=== PATIENT | female | born 1960 | race Caucasian/White ===

== ENCOUNTER 2019-01-25 05:48 | Inpatient (IN) ==
[~2019-01-25 05:48] MED LIST: Clindamycin 900mg (Premix) 900 MG/50 ML BAG IV ONE; LIDOCAINE W/ SODIUM BICARB 0.5 ML SYR ONE; Lactated Ringers 1,000 ML PRIMARY IV ONE; Sodium Chloride 0.9% 0 ML ONE; Vancomycin Inj 1gm vial ONE
[2019-01-25] MEDS ORDERED: LIDOCAINE W/ SODIUM BICARB 0.5 ML SYR SUBD ONE (06:00)
[2019-01-25] MEDS ORDERED: Vancomycin-PHA to Dose IV PRN (06:00)
[2019-01-25] MEDS ORDERED: Nasal Sanitizer POPSWAB ampule 3 AMP (Nozin) PREOP DOSE ENOS SCH (06:00)
[2019-01-25] MEDS ORDERED: Clindamycin 900mg (Premix) 900 MG/50 ML BAG IV ONE (06:00)
[2019-01-25] MEDS ORDERED: Lactated Ringers 1,000 ML PRIMARY IV ONE (06:00)
[2019-01-25 06:28] LABS: BILIRUBIN,URINE NEGATIVE (NEG); CLARITY,URINE Slightly Cloudy (CLEAR); COLOR,URINE YELLOW (Y); GLUCOSE, URINE (UA) NEGATIVE (NEG); OCCULT BLOOD,URINE NEGATIVE (NEG); PH,URINE 5.5 (5.0-8.5); PROTEIN,URINE NEGATIVE (NEG); UROBILINOGEN,URINE 0.2 EU/dL (0.2)
[2019-01-25 06:32] LABS: RBC,URINE 0-1 /hpf; SQUAMOUS EPITHELIAL CELL,UR MODERATE; URINE SAMPLE TYPE VOIDED SPECIMEN
[2019-01-25] MEDS ORDERED: BUPivacaine Inj 0.25% PF - 10ml vial ONE (06:50)
[2019-01-25] MEDS ORDERED: BACITRACIN 50,000 UNIT VIAL IRRIG ONE ×4 (06:51→14:24)
[2019-01-25] MEDS ORDERED: Sodium Chloride 0.9% vial 20 ML ONE ×4 (06:51→14:56)
[2019-01-25] MEDS ORDERED: Vancomycin Inj 1gm vial ONE (06:54)
[2019-01-25] MEDS ORDERED: Gentamicin Inj 40 MG/ML VIAL ONE (06:54)
[2019-01-25] MEDS ORDERED: Sodium Chloride 0.9% 1,000 ML PRIMARY IV ONE (07:00)
[2019-01-25] MEDS ORDERED: IPRATROPIUM/ALBUTEROL SULFATE 3 ML NEB NEB ONE ×2 (07:05→07:18)
[2019-01-25] MEDS ORDERED: LIDOCAINE W/ SODIUM BICARB 0.5 ML SYR ONE (07:10)
[2019-01-25] MEDS ORDERED: PROPOFOL 10 MG/1 ML (200 MG/20 ML) VIAL IV ONE (07:25)
[2019-01-25] MEDS ORDERED: HYDROmorphone 2 MG/1 ML ONE ×4 (07:28→17:50)
[2019-01-25] MEDS ORDERED: Sodium Chloride 0.9% vial 10 ML ONE ×2 (07:29→12:44)
[2019-01-25] MEDS ORDERED: ROCURONIUM 10 MG/1 ML - 5 ML VIAL IVP ONE (07:32)
[2019-01-25] MEDS ORDERED: SUCCINYLCHOLINE CHLORIDE 20 MG/1 ML - 10 ML ONE (07:33)
[2019-01-25 08:15] LABS: RBC,URINE 0-1 /hpf
[2019-01-25] MEDS ORDERED: BUPIVACAINE 0.25% W/ EPI - 10 ML VIAL ONE ×2 (08:18→09:29)
[2019-01-25] MEDS ORDERED: Hetastarch 6% + NS 1,000 ML IV ONE (08:34)
[2019-01-25] MEDS ORDERED: TRANEXAMIC ACID 1,000 MG / 10 ML VIAL ONE (10:48)
[2019-01-25] MEDS ORDERED: SODIUM BICARBONATE 8.4% - 50 ML VIAL ONE (10:50)
[2019-01-25] MEDS ORDERED: BUPivacaine Liposome/PF (Exparel) Inj 20ml vial INFIL ONE (15:03)
[2019-01-25] MEDS ORDERED: fentaNYL Inj 100 MCG/2 ML VIAL IVP PRN (17:18)
[2019-01-25] MEDS ORDERED: Prochlorperazine Edisylate Inj 10mg/2ml vial IVP PRN ×2 (17:18→19:05)
[2019-01-25] MEDS ORDERED: LIDOCAINE W/ SODIUM BICARB 0.5 ML SYR SUBD PRN (17:18)
[2019-01-25] MEDS ORDERED: ONDANSETRON 4 MG/2 ML VIAL IVP PRN ×2 (17:18→19:05)
--- NOTE | 2019-01-25 17:18 | CRNA.PROGR ---
Anesthesia Recovery Phase I - Post Anesthesia Evaluation Patient's Condition on Arrival in Phase I: Stable Patient's Condition on Arrival in Phase II: Stable Pain Level: 2
--- NOTE | 2019-01-25 17:18 | CRNA.PROGR ---
Anesthesia Time - Procedure/Recovery Time Start Date: 01/25/19 End Date: 01/25/19 Anesthesia : Time In: 07:30 Anesthesia : Time Out: 17:18 Anesthesia : Total Time: 588 - Total Anesthesia Time Total Anesthesia Time (minutes): 588 - Other Weight: 136.622 kg Height: 5 ft 5 in Body Mass Index (BMI): 50.1 Physical Status: P3 Anesthesia Type: General Anesthesia : ET (stable at patient handoff PACU bp 145/68, resp 17, sat 98, pulse 71, 3400ml crystalloid, 1000ml colloid, 400ml urine, 1000 ml blood loss)
[2019-01-25] MEDS: HYDROmorphone 2 MG/1 ML IVP PRN ×5 (17:19→18:02)
--- NOTE | 2019-01-25 17:25 | CRNA.PROGR ---
Anesthesia Note - Progress Notes Anesthesia Progress Note: multiple attempt was made for interoperative A-line at right and left radial artery sites. was able to canulate the L radial artery with U/S guidance confirming catheter position. upon moving the patient, the tip of catheter migrated sub Q. This due to the fact patient has redundant tissue and 22g catheter, needle a-line availble was too short for this type of patient, no alternatives available. Technique was abandoned. No vascular compromise apparent with attempts made as see with doppler flow U/S. patient recovered well in PACU. h/h and bmp pending at time of note. Pt stable in recovery with [facility]. Will follow up at surgeon/pt request PRN. Update given to hospitalist available, same discussed with surgeon.
--- NOTE | 2019-01-25 17:25 | GEN.OPNOTE ---
Operative Note Surgery Date: 01/25/19 Preoperative Diagnosis: 1. Chronic low back pain. 2. Chronic bilateral lower extremity symptoms right worse and more frequent than the left. 3. Multilevel lumbar degenerative disc disease early advanced at L4-5 and advanced at L5-S1. 4. Multilevel lumbar spondylosis advanced at L4-5 and L5-S1, worse at the L4-5 level. 5. Posterior listhesis of L5 on S1. Postoperative Diagnosis: 1. Chronic low back pain. 2. Chronic bilateral lower extremity symptoms right worse and more frequent than the left. 3. Multilevel lumbar degenerative disc disease early advanced at L4-5 and advanced at L5-S1. 4. Multilevel lumbar spondylosis advanced at L4-5 and L5-S1, worse at the L4-5 level. 5. Posterior listhesis of L5 on S1. 6. Bilateral L4-5 lateral recess stenosis (ligamentous hypertrophy) and L5-S1 lateral recess stenosis (bony hypertrophy). 7. Bilateral L4 and L5 neuroforaminal stenosis. Procedure: 1.) Partial L4 laminectomy with medial facetectomies and foraminotomies for decompression of central canal, bilateral lateral recess, and bilateral neuroforaminal stenosis at the L4-5 level. (CPT code: 43149). 2.) Complete L5 laminectomy with medial facetectomies and foraminotomies for decompression of bilateral lateral recess and neuroforaminal stenosis. (CPT code 72439). 3.) Arthrodesis, combined posterolateral and posterior interbody technique, L4-5. (CPT code: 11777). 4.) Arthrodesis, combined posterolateral and posterior interbody technique, L5-S1. (CPT code: 50987). 5.) Insertion 9 mm x 11 mm x 28 mm Tritanium [address] titanium lumbar interbody cage filled in the center with autograft into the L4-5 interspace for fusion of the L4-5 interspace. (CPT code: 30493). 6.) Insertion 9 mm x 11 mm x 28 [address] titanium lumbar interbody cage filled in the center with autograft into the L5- S1 interspace for fusion of the L5-S1 interspace. (CPT code: 00150). 7.) Segmental posterolateral instrumentation L4-S1 using the Swift Identity Ashley 3 pedicle screw and liz system. (CPT code: 73467). 8.) Use of autograft, harvested through the same incision, cleaned of soft tissue and morselized, for interbody and posterolateral fusion. (CPT code: 50145). 9.) Use of 20cc Swift Identity Vitoss Bimodal synthetic bone fusion product/promotor (implantable allograft), 4 cc of Arlet Biologics Active Matrix (implantable allograft), and 20 cc Tisha BIO DBM Putty Plus cancelleous (implantable allograft) for interbody and posterolateral fusion. (CPT code: 87318). 10.) Use of the Swift Identity computer assisted neuronavigation system for cannulization of the L4, L5, and S1 pedicles bilaterally for the subsequent placement of the L4, L5, and S1 pedicle screws bilaterally. (CPT code: 40000). 11.) Use of intra-operative fluoroscopy for localization of the correct surgical level and for final confirmation of the pos ition of the L4-5 intervertebral cage and final confirmation of the position of the L4-5 posterolateral hardware elements. 12.) Use of intra-operative neuromonitoring including free running EMG's, triggered EMG's, and SSEP's. Surgeon: Dre Perez MD Superintendent Menagerie: LEANN Feldman Estimated Blood Loss (mL): 1,100 Fluids: See anesthesia record Pathology: None Indications: Ms. Vaughan is a 62-year-old female with chronic neck and back pain. Her back pain has been present for decades. She has had back pain ever since a lumbar discectomy performed by Dr. Tee in 1998. She has pain in her legs, primarily the right leg, but occasionally she has pain in the left leg as well. She has had physical therapy and has 4-5 lumbar injections in the past year, which have not provided any durable relief of her symptoms. We discussed the option of proceeding with a L4-5 and L5-S1 transforaminal interbody and L4-S1 posterolateral instrumented fusion for possible durable reduction of her chronic back and intermittent bilateral leg symptoms. She wished to proceed with the surgical procedure and presents for the surgery today. Findings: 1.) Prominent left L4-5 subligamentous disc protrusion. 2.) Desiccated, partially calcified, L5-S1 disc. 3.) Lumbar central canal stenosis, L4-5. 4.) Bilateral lateral recess stenosis L4-5 (ligamentous hypertrophy) and L5-S1 (bony hypertrophy). 5.) Bilateral L4-5 and L5-S1 neuroforaminal stenosis. Complications: None Operative Summary: Ms. Vaughan was met in the pre-operative area. Her surgical history and physical in her chart was reviewed. I reviewed with her the procedure to be performed and we were in agreement on the procedure and this matched what was written on the patient's consent form. I answered any questions that she had before she was taken back to the operating room suite. Ms. Vaughan was brought back to the operating room suite. She was put under general anesthesia and intubated by the anesthesia staff. She had a Alfaro catheter placed in her bladder for the procedure. She had pneumatic compression hose placed on her lower legs bilaterally. Mr. Vaughan was carefully rolled over onto the Russell surgical table. Her arms were gently positioned upwards with her shoulders abducted less than 90. Her arms were well-padded with foam padding on top of the padding the surgical armboards. The region of her chest and axilla was checked bilaterally to make sure that there were no pressure points over the region of the brachial plexus bilaterally. Her breasts were checked be below the chest pad of the Russell table with no pressure pointsover the nipples. All bony prominences were well padded. Her Alfaro catheter was checked be free from kinks. Her pneumatic compression hose was attached and pneumatic compression device. The C-arm fluoroscopy unit was used to help haylei the skin incision for the approach to the intended surgical levels. The intended incision with several crosshatches were marked on the skin with a skin marker. Her scar from her previous surgery was caudal to the marked intended skin incision and not incorporated into the intended skin incision. She was prepped and draped in the usual and standard fashion. She was given 900 mg of Cleocin IV and vancomycin (dosed per pharmacy) IV for perioperative antibiosis. She was given 10 mg of Decadron IV. A standard surgical timeout was performed identifying the correct patient, the correct procedure, and the correct equipment being available for the procedure. The intended skin incision was injected subcutaneously with quarter percent Marcaine with 1 in 200,000 epinephrine. 20 mL of local anesthetic was used. The skin was incised with a 10 blade scalpel and all dermal and superficial bleeding points were controlled with bipolar cautery. Dissection was continued down through the copious subcutaneous tissue to the lumbosacral fascia. The lumbosacral fascia was incised along the borders of the spinous processes and subperiosteal dissection was performed down the spinous processes and out over the lamina with Bovie cautery. A Isabelle was placed over the spinous process at the level of what was believed the L4 pedicles and this was confirmed with lateral fluoroscopy. Continued subperiosteal dissection was performed until the final exposure was of the inferior aspect the L3 lamina, the L4 lamina, the L5, and the upper part of the sacrum bilaterally. The dissection was continued laterally over the L3-4 and L4-5 and L5-S1 facet joints and out laterally over the L4 and L5 transverse processes and the sacral alar bilaterally. During the dissection, large Ethibond suture were encountered in the facial layer in the very caudal aspect of the dissection which were removed. Cerebellar and Gelpi retractors were placed for self-retaining retraction. Soft tissue was cleaned over the posterior aspect of the spine using Bovie cautery as well as a large Leksell rongeur. Extensive decortication of the L4, and L5 transverse processes and the sacral alar bilaterally as well as the lateral aspect of the L3-4 facet joint and the lateral and posterior aspect of the L4-5 and L5-S1 facet joints after removing the hypertrophied posterior aspect of the L4-5 and L5-S1 facet joints with a large Leksell rongeur bilaterally was performed. The upper part of the sacrum was decorticated as well. All decortication was performed with the high-speed Powerphotonic electric drill with a matchstick bit. The bone dust created was collected and saved to be used as autograft for the fusion portion of the procedure. The Tisha neuro navigation reference arc was securely attached to the L3 spinous process and a spin was performed with the [facility] 3-D fluoroscopy unit. The Tisha neuro navigation pedicle probe was then used to cannulate the L4, L5, and S1 pedicles bilaterally. A Jamshidi needle was then inserted into the left L4 pedicle and 20 cc of vertebral body bone marrow was collected and used to saturate the Kellogg Vitoss synthetic bone product intended for the posterior lateral fusion. The internal aspects of the L4, L5, and S1 pedicles were palpated bilaterally with a small ball-tip instrument. The pedicles were then tapped with the appropriate size Tisha Phil 3 pedicle tap. The internal aspect of the pedicles were palpated with a small ball-tip instrument again. The pedicle screws were then placed. 6.5 x 60 mm pedicle screws were placed into the L4 pedicles bilaterally. 6.5 x 55 mm pedicle screws were placed into the L5 pedicles bilaterally. 7.5 x 50 mm pedicle screws were placed into the S1 pedicles bilaterally. The pedicle screws obtained good purchase in the pedicle and vertebral body bone at each level bilaterally. The pedicle screws were then interrogated with triggered EMGs all demonstrating sufficiently high impedance (27 mA or above) indicating that all the pedicle screws were not in close proximity to nerve structures. Another spin was performed with the [employer] 3-D fluoroscopy unit demonstrating that the pedicle screws were contained within the confines of the pedicles at each level bilaterally and that the pedicle screws were all bi-cortical or nearly bi- cortical in purchase as intended. The L5 pedicle screw on the left however exited the lateral aspect of the vertebral body shortly after transversing the pedicle. The pedicle screw was removed and a new more medial trajectory was cannulated in the left L5 pedicle using the neuronavigation pedicle finder with the Swift Identity computer assisted neuronavigation system. The pedicle screw was then placed with this more medial trajectory obtaining good purchase in the pedicle and vertebral body. The pedicle screw was interrogated again with triggered EMG's demonstrating sufficiently high impedance and another spin with the 3D fluoroscopy unit demonstrated the pedicle screw to be within the confines of the pedicle and the vertebral body and bicortical in purchase. Attention was turned to the decompression portion of the procedure. The caudal aspect of the L4 spinous process and the L5 spinous process was removed with a large Leksell rongeur. The L4 and L5 lamina was thinned down with the same instrument. A partial laminectomy of L4 and complete laminectomy of L5 with medial facetectomies and foraminotomies was performed bilaterally. Surgical findings included mild to moderate central canal, moderate to moderately severe lateral recess and neuroforaminal stenosis bilaterally at the L4-5 level all greater in degree then expected on pre-operative imaging and L5-S1 lateral recess and neuroforaminal stenosis bilaterally. Excellent decompression of the central canal, lateral recesses, neuroforamen, and of the thecal sac and exiting and transversing nerve roots was assured by visual inspection as well as palpating in the canal and around the nerve structures with a [place] instrument. The medial facetectomy on the left at L4-5 and L5-S1 were extended laterally to provide the proper exposure needed for the intended interbody fusions at these levels. The lateral extension of the medial facetectomies were performed with the high-speed drill with a matchstick bit. A Monument 4 instrument was used to carefully dissect the soft tissue adjacent to the takeoff of the L5 nerve root and of the S1 nerve root identifying respectively the L4-5 and L5-S1 disc sp aces. The Sanjay nerve root retractor was used to gently retract the thecal sac and the takeoff the L5 nerve root, exposing the L4-5 disc space on the left, with a prominent subligamentous disc protrusion being encountered. Epidural veins over the disc space were coagulated with bipolar cautery turned down to a low setting and then cut with microscissors. An annulotomy was performed in the L4-5 disc space with a 15 blade scalpel and disc material being removed with a pituitary rongeur. Additional disc and cartilaginous endplate was loosened in the disc space using a 7 mm followed by an 8 mm K2 disc space shaver. Between the disc space gianluca additional disc material was removed from the interspace using a pituitary rongeur. The large Minh down-biting curet was used to loosen disc laterally in the L4-5 disc space bilaterally with the fragments being removed with a pituitary rongeur. The large Minh down-biting curet was then used to decorticate the inferior L4 endplate and the superior L5 endplate in the L4-5 interspace. The interspace was then irrigated with bacitracin irrigation. Approximately 2.5 cc of Kellogg BIO DBM Putty Plus cancelleous (implantable allograft) was then placed in the L4-5 interspace and moved anteriorly with a bone tamp. The interspace was then sized for the appropriate size lumbar interbody cage. A 9 mm x 11 mm x 28 [address] Tritanium [address] titanium lumbar interbody cage was selected and filled in the center with autograft and inserted into the L4-5 interspace using the rail track maintainer. The cage was gently countersunk and rotated with a bone tamp and mallet. The cage obtained good purchase between the L4 and L5 endplates. The final position of the intervertebral cage was confirmed with lateral fluoroscopy. The D'Errico nerve root retractor was used to gently retract the thecal sac and the takeoff the S1 nerve root. This disc space was completely collapsed posteriorly with overlap of the posterior inferior aspect of the L5 vertebral b dom being shingled over the posterior aspect of the disc space evident on imaging. The D'Errico nerve root retractor was used to gently retract the thecal sac and the transversing S1 nerve root. The posterior inferior endplate of the L5 vertebral body overhanging the L5-S1 disc space on the left was drilled away until the disc space was encountered. Disc and cartilaginous endplate was loosened in the disc space using a 7 mm K2 disc space shaver followed by a 8 mm disc space shaver. Between the disc space gianluca additional disc material was removed from the interspace using a pituitary rongeur. The large Minh down-biting curet was used to loosen disc laterally in the L5-S1 disc space bilaterally with the fragments being removed with a pituitary rongeur. The disc material in this disc space was very desiccated and partially calcified. The large Minh down-biting curet was then used to decorticate the inferior L5 endplate and the superior S1 endplate in the L5-S1 interspace. The interspace was then irrigated with bacitracin irrigation. Approximately 2.5 cc of Kellogg BIO DBM Putty Plus cancelleous (implantable allograft) was then placed in the L5-S1 interspace and moved anteriorly with a bone tamp. The interspace was then sized for the appropriate size lumbar interbody cage. A 9 mm x 11 mm x 28 mm Tritanium PL titanium lumbar interbody cage was selected and filled in the center with autograft and inserted into the L5-S1 interspace using the rail track maintainer. The cage was gently countersunk and rotated with a bone tamp and mallet. The cage obtained good purchase between the L5 and S1 endplates. The final position of the intervertebral cage was confirmed with lateral fluoroscopy. Attention was turned back to the instrumentation portion of the procedure. A 6.0 mm x 60 mm pre-bent Tisha Phil 3 titanium liz was selected and placed in the [place] of the L4, L5, and S1 pedicle screws bilaterally. Set screws were placed over the rods in the [place] of each of the pedicle screws which were tightened down hand tight initially and then tightened down to their final tightness using the torque/counter torque device. The surgical site was then pulse lavaged with 3 L of vancomycin/bacitracin/gentamicin solution. The paraspinous musculature was retracted and 10 mL of Kellogg Vitoss Bimodal synthetic bone product (allograft) saturated with 5 mL of vertebral body bone marrow and 5 cc of Milabra Active Matrix (allograft)(4 cc diluted to 16 cc with injectable saline)was then placed lateral to the hardware construct on each side from the L4 transverse process to over the sacral alar and upper part of the sacrum bilaterally. The remaining autograft was then split with half of the morselized autograft being placed lateral to the hardware construct over the Vitoss synthetic bone product from the L4 transverse process to the sacral alar bilaterally. The remaining approximately 15 mL of Tisha BIO DBM Putty Plus cancellous which was then split with half of this product being placed lateral to the hardware construct over the bone chips and Vitoss synthetic bone product from the L4 transverse process to sacral alar and over the upper part of the sacrum bilaterally. The canal lateral recesses were inspected for any bone chips and any identified were removed with forceps. The canal lateral recesses were then irrigated with a small amount bacitracin irrigation which was subsequently removed with suction. FloSeal hemostatic agent was then placed in the lateral recess and over all exposed dural elements. A piece of compressed Gelfoam was then placed across the canal. A medium Hemovac drain was placed in the surgical site. The paraspinous musculature was re-approximated with #1 Vicryl suture. The lumbosacral fascia was closed tightly with #1 Vicryl suture in an interrupted fashion. The surgical site was irrigated again with bacitracin irrigation. A medium Hemovac drain was placed above the fascial layer. The deep subcutaneous tissue and fascia was re-approximated with #1 Vicryl suture in an interrupted fashion. The more superficial subcutaneous tissue was re-approximated with 2-0 Vicryl suture in an interrupted fashion. 20 mL of Exoperel deluded with 20 mL of 1/4 percent Marcaine was then injected all around the incision in the subcutaneous tissue. The remaining 9cc of [employer] Biologics Active Matrix was then injected all around the incision in the subcutaneous tissue. The dermis and most superficial subcutaneous tissue was reapproximated with 2-0 Vicryl suture in an inverted interrupted fashion. The [place] drape was pulled back from the skin edges and the final layer of closure was performed surgical stainless steel ratna. The incision was cleansed with bacitracin soaked sponge and then dried with sterile dry sponge. A Prevena suction dressing was then applied to the incision. The surgical drains were secured with 2-0 Vicryl suture. The drain sites were then dressed. All surgical drapes removed from Ms. Vaughan. She was carefully rolled over onto the PACU stretcher. She was awoken and extubated by the anesthesia staff. She was taken the recovery room in stable condition. All surgical counts reported as correct by the scrub and circulating personnel. A physician's blood donor unit assistant, Mrs. Elma Cortez PA-C, assisted with the procedure including the exposure and closure portions of the procedure. She provided irrigation and suctioning throughout the procedure. She skillfully and carefully retracted the nerve structures during the more critical portions of the procedures such as the discectomy and intervertebral cage placement portions of the procedure.
[2019-01-25 17:51] LABS: EC8 SAMPLE TYPE VENOUS
[2019-01-25 17:52] LABS: EC8 CHEM PANEL - PH 7.41 (7.35-7.45); EC8 CHEM PANEL CHLORIDE 104 meq/L (98-112); EC8 CHEM PANEL POTASSIUM 4.6 meq/L (3.5-4.9); EC8 CHEM PANEL SODIUM 141 meq/L (135-145)
[2019-01-25 17:53] LABS: EC8 CHEM PANEL BASE EXCESS 5 MMOL/L (-2-2); EC8 CHEM PANEL HCO3 29 mmol/L (22-26)
--- NOTE | 2019-01-25 18:46 | NEURO.PROG ---
Subjective Post Op Day: 0 Pain Management: IV Alfaro Catheter: Yes Diet: Constant carbohydrate Ambulating: No Additional Details: Just arrived in monitored unit from PACU. Awake and alert. Surgical back pain as expected. Denies pain, numbness, or tingling in legs. Good knee flexion, dorsiflexion, plantarflexion bilaterally. Continue operative drains. Continue post-operative antibiotics while drains present. Continue post-operative pain control. Advance diet. Start to mobilize in am. Objective : Data - Labs CBC and BMP: 01/25/19 17:40 - Vital Signs Vital Signs and I&O: Vital Signs - Last Taken Temperature 97.2 F 01/25/19 06:39 Pulse Rate 57 L 01/25/19 07:27 Respiratory Rate 18 01/25/19 07:27 Blood Pressure 132/86 01/25/19 06:39 Pulse Ox 87 01/25/19 07:27 Intake and Output (24hr x 4 totals) 01/23/19 01/24/19 01/25/19 01/26/19 05:59 05:59 05:59 05:59 Intake Total 3400 / 3400 Output Total 1400 / 1400 Balance 1999
[2019-01-25] MEDS ORDERED: MAGNESIUM 400 MG/5 ML - 30 ML (MILK OF MAGNESIA) PO PRN (19:05)
[2019-01-25] MEDS ORDERED: DIAZEPAM 10 MG/2 ML (5 MG/1 ML) CARPUJECT IVP PRN (19:05)
[2019-01-25] MEDS ORDERED: IMIQUIMOD TOPICAL SCH (19:05)
[2019-01-25] MEDS ORDERED: Ondansetron ODT Tab 4 MG TAB PO PRN (19:05)
[2019-01-25] MEDS ORDERED: Metoclopramide Inj 10 MG/2 ML VIAL IVP PRN (19:05)
[2019-01-25] MEDS ORDERED: Fleet Enema 133ml RECTAL PRN (19:05)
[2019-01-25] MEDS ORDERED: DIAZEPAM 10 MG TABLET PO PRN (19:05)
[2019-01-25] MEDS ORDERED: BISACODYL 5 MG TABLET PO PRN (19:05)
[2019-01-25] MEDS ORDERED: MORPHINE SULFATE 2 MG/1 ML IVP PRN (19:05)
[2019-01-25] MEDS ORDERED: HYDROcodone-APAP 10 MG-325 MG TABLET PO PRN (19:05)
[2019-01-25] MEDS ORDERED: LACTOBACILLUS ACIDOPHILUS 460 MG PO SCH (19:05)
[2019-01-25] MEDS ORDERED: oxyCODONE/APAP 10/325 Tab 1 EACH TAB PO PRN (19:05)
[2019-01-25] MEDS ORDERED: PROMETHAZINE 25 MG/1 ML VIAL IM PRN (19:05)
[2019-01-25] MEDS ORDERED: MAGNESIUM CITRATE 296 ML SOLUTION PO PRN (19:05)
[2019-01-25] MEDS ORDERED: INSULIN ASPART 5 UNIT SUBCUT SCH (19:05)
[2019-01-25] MEDS ORDERED: Vancomycin-PHA to Dose IV SCH (19:05)
[2019-01-25] MEDS ORDERED: DOCUSATE 100 MG CAPSULE PO PRN (19:05)
[2019-01-25] MEDS ORDERED: HYDROcodone-APAP 7.5 MG-325 MG TABLET PO PRN (19:05)
--- NOTE | 2019-01-25 19:10 | CONSULT ---
Consult Note - Consult Consult Date: 01/25/19 Reason for Consult: Other (Consult by Dr. Sue) Requesting Physician: Dr. Perez Primary Care Provider: ZORA LINN - History of Present Illness History of Present Illness: This is a 58 years old female with medical history significant for history of diabetes, hypercholesterolemia, depression, anxiety, hypothyroidism, chronic migraines, reflux, morbid obesity, sleep apnea on CPAP, multilevel lumbar degenerative disc disease, and leg swelling who came into the hospital to have surgery and she had transforaminal lumbar interbody body and posterolateral instrumented fusion done by Dr. Perez today. the hospitalist service were consulted for management of medical issues. Patient was seen postoperatively, apart from pain in her back she was denying chest pain, shortness of breath, nausea. Past Medical History Medical History: 1. Morbid obesity. 2. History of hypothyroidism. 3. History of diabetes, she is only on sliding scale NovoLog according to her. 4. History of obstructive sleep apnea on CPAP. 5. History of depression. 6. History of hypercholesterolemia. 7. History of hypertension she said this was before her gastric bypass and now she is not on any medication. 8. History of cardiac catheterization in July 2014 there was no evidence of coronary artery disease. 9. History of chronic leg edema on furosemide. 10. Chronic back pain. 11. History of GERD. 12. History of grade 2 diastolic dysfunction. 13. History of ascending aorta dilatation 4.1 on echocardiogram done in 2013. 14. History of chronic migraines Surgical History: 1. History of gastric bypass. 2. History of bilateral knee replacements. 3. History of umbilical hernia repair Family History: Reviewed an Not Pertinent Past Social History: Does not smoke, does not drink, no drugs is in [place] with her . Tobacco Use: Never Smoker In the Past 12 Months, Have Used or Abuse Any of the Following Substance: None Review of Systems - Review of Systems All Systems: Reviewed & No Additional Complaints Except as Stated Medication / Allergies Home Medications: Home Medications Medication Instructions Recorded Confirmed Lactobacillus acidophilus 460 mg 460 mg PO QDAY 08/30/18 01/24/19 (20 billion cell) capsule albuterol sulfate HFA 90 2 puff INH QID 08/30/18 01/24/19 mcg/actuation aerosol inhaler betamethasone dipropionate 0.05 % 1 applic TOPICAL BID 08/30/18 01/24/19 topical ointment bupropion HCl XL 150 mg 24 hr 150 mg PO BID 08/30/18 01/24/19 tablet, extended release cyclobenzaprine 10 mg tablet 10 mg PO TID 08/30/18 01/24/19 docusate sodium 100 mg capsule 100 mg PO BID 08/30/18 01/24/19 escitalopram 10 mg tablet 10 mg PO QDAY 08/30/18 01/24/19 famotidine 40 mg tablet 40 mg PO QDAY 08/30/18 01/24/19 furosemide 40 mg tablet 40 mg PO QDAY 08/30/18 01/24/19 insulin aspart (U-100) 100 unit/mL 5 unit SUBCUT QACDINNER 08/30/18 01/24/19 (3 mL) subcutaneous pen levothyroxine 88 mcg tablet 88 mcg PO QDAY 08/30/18 01/24/19 mupirocin 2 % topical cream 1 applic TOPICAL TID 08/30/18 01/24/19 omega 8-xfo-sap-fish oil 1,000 mg 1 cap PO DAILY cap 08/30/18 01/24/19 (120 mg-180 mg) capsule omeprazole 20 mg capsule,delayed 20 mg PO BID 08/30/18 01/24/19 release potassium chloride ER 10 mEq 10 meq PO QDAY 08/30/18 01/24/19 capsule,extended release pravastatin 40 mg tablet 40 mg PO QDAY 08/30/18 01/24/19 pregabalin 200 mg capsule 200 mg PO TID 08/30/18 01/24/19 tolterodine ER 4 mg 4 mg PO QDAY 08/30/18 01/24/19 capsule,extended release 24 hr zolpidem 10 mg tablet 10 mg PO QHS 08/30/18 01/24/19 divalproex 500 mg tablet,delayed 500 mg PO BID #60 tab 12/29/18 01/24/19 release calcium carbonate 600 mg(1,500 2 tab PO QDAY tab 01/11/19 01/24/19 mg)-vitamin D3 800 unit chewable tablet cholecalciferol (vitamin D3) 50,000 unit PO QWEEK 01/11/19 01/24/19 50,000 unit capsule dicyclomine 20 mg tablet 20 mg PO QID 01/11/19 01/24/19 imiquimod 5 % topical cream packet 1 applic TOPICAL QHS ea 01/11/19 01/24/19 gddelyxu-scldbumj-veav 45 mg-folic 1 cap PO QDAY cap 01/11/19 01/24/19 acid 800 mcg-vit K 120 mcg capsule ranitidine 300 mg tablet 300 mg PO QHS tab 01/11/19 01/24/19 zinc 50 mg tablet 50 mg PO QDAY 01/11/19 01/24/19 Allergies/Adverse Reactions: Allergies Allergy/AdvReac Type Severity Reaction Status Date / Time Penicillins Allergy Severe face Verified 01/25/19 06:36 swelling sulfamethoxazole Allergy Severe Anaphylaxis Verified 01/25/19 06:36 [From Marra] topiramate [From Topamax] Allergy Severe Anaphylaxis Verified 01/25/19 06:36 trimethoprim [From Septra] Allergy Anaphylaxis Verified 01/25/19 06:36 NSAIDS (Non-Steroidal AdvReac Unknown Other : Verified 01/25/19 06:36 Anti-Inflamma See Comment Oral Contrast Allergy Nausea/Vomi Uncoded 01/25/19 06:36 ting/Diarrh ea Exam - Vitals Vital Signs: Vital Signs Temperature 96.9 F Pulse Rate 65 Respiratory Rate 18 Blood Pressure 129/67 Pulse Ox 98 Oxygen Flow Rate 3 LNC Height 5 ft 5 in Weight 301 lb 3.2 oz - General General Appearance: No Acute Distress, Cooperative, Morbidly Obese - Head Head Exam: Normal Inspection - Eye Eye Exam: POSITIVE: Normal Appearance - ENT ENT Exam: POSITIVE: Normal Exam - Neck Neck Exam: Normal Inspection - Respiratory Respiratory Exam: POSITIVE: Clear to Auscultation - Bilaterally - Cardiovascular Cardiovascular Exam: POSITIVE: RRR - GI/Abdominal GI/Abdominal Exam: POSITIVE: Normal Bowel Sounds, Non Tender, Non Distended, Soft, No Organomegaly - Rectal Rectal Exam: POSITIVE: Deferred - External Exam: POSITIVE: Deferred - Extremities Extremities Exam: POSITIVE: Normal Inspection Additional Extremities Exam Details: SCDs were applied - Neurological Neurological Exam: POSITIVE: Alert, Oriented x 3, CN II-XII Intact, No Facial Droop, Speech Intact / Clear, Moves All Extremities Equally - Psychiatric Psychiatric Exam: POSITIVE: Normal Affect Results - Labs CBC and BMP: 01/25/19 17:40 01/25/19 20:05 Assessment and Plan - Patient Problems (1) Chronic neck and back pain Current Visit: No Status: Chronic Comment: She status post spinal fusion, management per Dr. Perez. He wrote for pain medication and antiemetics. Code(s): M54.2 - Cervicalgia; M54.9 - Dorsalgia, unspecified; G89.29 - Other chronic pain (2) High cholesterol Current Visit: No Status: Chronic Comment: Continue previous medications Code(s): E78.00 - Pure hypercholesterolemia, unspecified (3) Diabetes Current Visit: Yes Status: Acute Comment: She is on sliding scale insulin at home will put her on sliding scale. Code(s): E11.9 - Type 2 diabetes mellitus without complications (4) Hypothyroidism Current Visit: Yes Status: Acute Comment: Same med Code(s): E03.9 - Hypothyroidism, unspecified (5) Sleep apnea Current Visit: No Status: Chronic Comment: She can use her own CPAP Code(s): G47.30 - Sleep apnea, unspecified (6) Depression Current Visit: No Status: Chronic Comment: Same medication Code(s): F32.9 - Major depressive disorder, single episode, unspecified (7) GERD (gastroesophageal reflux disease) Current Visit: No Status: Chronic Comment: Continue omeprazole and pepcid Code(s): K21.9 - Gastro-esophageal reflux disease without esophagitis
[2019-01-25] MEDS: oxyCODONE/APAP 7.5/325 Tab 1 TAB TAB PO PRN ×2 (19:25→23:33)
[2019-01-25] MEDS ORDERED: FLUMAZENIL 0.1 MG/1 ML - 5 ML IVP ONE (19:40)
[2019-01-25] MEDS: Clindamycin 900mg (Premix) 900 MG/50 ML BAG IV SCH (20:15)
[2019-01-25 20:48] LABS: BLOOD UREA NITROGEN 17 mg/dL (7-22)
[2019-01-25] MEDS ORDERED: ALBUTEROL SULFATE 8.5 GM HFA INHALER INH SCH (21:00)
[2019-01-25] MEDS ORDERED: BETAMETHASONE DIPROPIONATE TOPICAL SCH (21:00)
[2019-01-25] MEDS ORDERED: Tolterodine LA Cap 4 MG CAP PO SCH (21:00)
[2019-01-25] MEDS: PREGABALIN 100 MG CAPSULE PO SCH (21:29)
[2019-01-25] MEDS: DICYCLOMINE 20 MG TABLET PO SCH (21:29)
[2019-01-25] MEDS: DOCUSATE 100 MG CAPSULE PO SCH (21:29)
[2019-01-25] MEDS: Pravastatin Tab 40 MG TAB PO SCH (21:29)
[2019-01-25] MEDS: OMEPRAZOLE 20 MG CAPSULE PO SCH (21:29)
[2019-01-25] MEDS: ESCITALOPRAM 10 MG TABLET PO SCH (21:30)
[2019-01-25] MEDS: DIVALPROEX SODIUM 250 MG TABLET PO SCH (21:30)
[2019-01-25 23:00] LABS: VENOUS PH 7.32 (7.32-7.42)
[2019-01-26 01:19] LABS: VENOUS PH 7.38 (7.32-7.42)
[2019-01-26] MEDS: Clindamycin 900mg (Premix) 900 MG/50 ML BAG IV SCH (03:49)
[2019-01-26] MEDS: oxyCODONE/APAP 7.5/325 Tab 1 TAB TAB PO PRN ×2 (03:52→09:32)
[2019-01-26 04:13] LABS: VENOUS PH 7.36 (7.32-7.42)
[2019-01-26] MEDS: LEVOTHYROXINE 88 MCG TABLET PO SCH (05:34)
[2019-01-26 05:37] LABS: BASOPHILS # (AUTO) 0.01 10*3/UL; BASOPHILS % (AUTO) 0.2 % (0-1); EOSINOPHILS # (AUTO) 0.07 10*3/UL; EOSINOPHILS % (AUTO) 1.2 % (0-8); Hematocrit [HCT] 29.3 % (37.0-47.0); Hemoglobin [HGB] 9.2 g/dL (12.0-16.0); LYMPHOCYTES # (AUTO) 0.76 10*3/uL; MEAN CORPUSCULAR HEMOGLOBIN 30.3 PG (27-31); MEAN CORPUSCULAR HGB CONC 31.4 g/dL (33-37); MEAN CORPUSCULAR VOLUME 96.4 FL (81-99); MEAN PLATELET VOLUME 10.8 FL (7.4-12.2); MONOCYTES # (AUTO) 0.55 10*3/UL (0.3-0.8); MONOCYTES % (AUTO) 9.1 % (5-15); NEUTROPHILS # (AUTO) 4.65 10*3/UL; NEUTROPHILS % (AUTO) 76.7 % (50-80); RED BLOOD COUNT 3.04 10^6/uL (4.20-5.40)
[2019-01-26 06:05] LABS: PLATELET MORPHOLOGY COMMENT NORMAL MORPHOLOGY (NORM); RBC MORPHOLOGY COMMENT NORMAL MORPHOLOGY (NORM); WBC MORPHOLOGY COMMENT NORMAL MORPHOLOGY (NORM)
[2019-01-26 06:10] LABS: BLOOD UREA NITROGEN 17 mg/dL (7-22); BUN/CREATININE RATIO 28.33 (6-20)
--- NOTE | 2019-01-26 06:26 | NEURO.PROG ---
Subjective Post Op Day: 1 Pain Management: PO Alfaro Catheter: Yes Diet: Regular Ambulating: No Additional Details: Mrs Vaughan was awake and alert on rounds this morning with Dr Perez. Her dorsi/plantar flexion and knee flexion are strong bilaterally. She also had good arm strength bilaterally. She does complain of incision site pain, but denied leg pain, numbness or tingling. She did complain of right eye scratchiness which she had in post op. It was checked at that time by Dr Garza. No obvious sign of redness or injury. Episode of unresponsiveness after valium was noted as well as the discontinuation of the valium. The Prevena dressing is intact and functioning on her back incision. The hemovac drain had 260ml in 12 hours from the deep drain, 0ml drainage from the superficial drain. Plan: Mobilize Start Flexeril Discontinue superficial drain Discuss possible eye drops for comfort with Dr. Dias Objective : Data - Labs CBC and BMP: 01/26/19 03:50 01/26/19 03:50 - Vital Signs Vital Signs and I&O: Vital Signs - Last Taken Temperature 98.7 F 01/26/19 05:00 Pulse Rate 74 01/26/19 05:00 Respiratory Rate 10 L 01/26/19 05:00 Blood Pressure 115/60 01/26/19 05:00 Pulse Ox 95 01/26/19 05:00 Intake and Output (24hr x 4 totals) 01/24/19 01/25/19 01/26/19 01/27/19 05:59 05:59 05:59 05:59 Intake Total 4804 / 4804 Output Total 2014 Balance 2789 / 2789
[2019-01-26] MEDS ORDERED: PANTOPRAZOLE 40 MG TABLET PO SCH (07:00)
[2019-01-26] MEDS ORDERED: CYCLOBENZAPRINE 10 MG TABLET PO SCH (09:00)
[2019-01-26] MEDS: Insulin Lispro Flexpen 300 UNIT/3 ML INSULN.PEN SUBCUT SCH ×3 (09:32→17:16)
[2019-01-26] MEDS: FUROSEMIDE 40 MG TABLET PO SCH (09:33)
[2019-01-26] MEDS: DIVALPROEX SODIUM 250 MG TABLET PO SCH ×2 (09:33→20:38)
[2019-01-26] MEDS: PREGABALIN 100 MG CAPSULE PO SCH ×2 (09:33→20:39)
[2019-01-26] MEDS: DOCUSATE 100 MG CAPSULE PO SCH ×2 (09:33→20:39)
[2019-01-26] MEDS: Calcium/Vit D 600mg/400u Tab 1 TAB TABLET PO SCH (09:33)
[2019-01-26] MEDS: Potassium Chloride Tab 10 MEQ TAB PO SCH (09:33)
[2019-01-26] MEDS: FAMOTIDINE 40 MG TABLET PO SCH (09:34)
[2019-01-26] MEDS: OMEPRAZOLE 20 MG CAPSULE PO SCH ×2 (09:34→20:39)
[2019-01-26] MEDS: DICYCLOMINE 20 MG TABLET PO SCH ×4 (09:34→20:37)
--- NOTE | 2019-01-26 11:57 | PDOC(PROG) ---
Date of Service: 01/26/19 Time of Service: 11:49 Interval History: Mildly sedated from pain medications. Can answer questions appropriately, however. Back pain present. Denies shortness of breath, nausea or vomiting. States she is eating and drinking well. Is still on Vapotherm therapy. CO2 retention is improved. Objective : Data - Labs CBC and BMP: 01/26/19 03:50 01/26/19 03:50 Additional Lab Results: 01/26/19 04:05 VBG pH 7.36 VBG pCO2 49 VBG HCO3 28 H VBG Base Excess 2 Objective : Exam - General General Appearance: No Acute Distress, Cooperative Additional General Exam Details: Vital Signs - Last Taken Temperature 98.5 F 01/26/19 11:15 Pulse Rate 71 01/26/19 11:15 Respiratory Rate 12 01/26/19 11:15 Blood Pressure 133/60 01/26/19 11:15 Pulse Ox 94 01/26/19 11:15 - Eye Eye Exam: No Scleral Icterus - ENT ENT Exam: Mucous Membranes Moist - Neck Neck Exam: JVP is not Raised - Respiratory Respiratory Exam: Clear to Auscultation - Bilaterally, Breathing Non Labored - Cardiovascular Cardiovascular Exam: RRR, No Murmur, No Clicks, No Gallops, No Rubs, No JVD - GI/Abdominal GI/Abdominal Exam: Normal Bowel Sounds, Non Tender, Non Distended, Soft - Extremities Extremities Exam: No Clubbing Present, No Edema Present, No Cyanosis Present - Neurological Neurological Exam: Alert, Oriented x 3, No Facial Droop, Speech Intact / Clear, Moves All Extremities Equally Assessment and Plan - Patient Problems (1) Acute hypercapnic respiratory failure Current Visit: Yes Status: Acute Code(s): J96.02 - Acute respiratory failure with hypercapnia (2) Acute hypoxemic respiratory failure Current Visit: Yes Status: Acute Code(s): J96.01 - Acute respiratory failure with hypoxia (3) Diabetes Current Visit: Yes Status: Acute Code(s): E11.9 - Type 2 diabetes mellitus without complications Qualifiers: Diabetes mellitus type: type 2 Diabetes mellitus intermediate project manager insulin use: with intermediate project manager use Diabetes mellitus complication status: without complication Qualified Code(s): E11.9 - Type 2 diabetes mellitus without complications; Z79.4 - prison (current) use of insulin (4) Sleep apnea Current Visit: Yes Status: Chronic Code(s): G47.30 - Sleep apnea, unspecified Qualifiers: Sleep apnea type: obstructive Qualified Code(s): G47.33 - Obstructive sleep apnea (adult) (pediatric) (5) GERD (gastroesophageal reflux disease) Current Visit: Yes Status: Chronic Code(s): K21.9 - Gastro-esophageal reflux disease without esophagitis (6) Chronic neck and back pain Current Visit: Yes Status: Chronic Code(s): M54.2 - Cervicalgia; M54.9 - Dorsalgia, unspecified; G89.29 - Other chronic pain (7) Depression Current Visit: Yes Status: Chronic Code(s): F32.9 - Major depressive disorder, single episode, unspecified Qualifiers: Depression Type: other depression Qualified Code(s): F32.89 - Other s pecified depressive episodes (8) High cholesterol Current Visit: Yes Status: Chronic Code(s): E78.00 - Pure hypercholesterolemia, unspecified (9) Hypothyroidism Current Visit: Yes Status: Acute Code(s): E03.9 - Hypothyroidism, unspecified Qualifiers: Hypothyroidism type: acquired Qualified Code(s): E03.9 - Hypothyroidism, unspecified - Assessment / Plan Additional Assessment/Plan Details: Patient is still on Vapotherm therapy. reduce doses of pain medications to help prevent oversedation, buildup of CO2, and hypoxemia. Use CPAP therapy. She has her pressure device machine here. Labs in a.m. PT and OT as per neurosurgery. DVT prophylaxis as per neurosurgery. Check hemoglobin A1c to get an idea of how well diabetes is controlled. Stop IV fluids.
--- NOTE | 2019-01-26 13:01 | PTI REPORT ---
Thank you for the referral of Ana María Vaughan. She was seen on 01/26/19 for an inpatient evaluation status post lumbar fusion. SUBJECTIVE: The patient is a 58-year-old female who underwent a lumbar fusion surgery yesterday. Per nursing report, the patient is complaining of some chest pain secondary to them having to do a sternal rub once she had come out of surgery as she was having a difficult time with the medications. Nursing staff reports that she is doing a little better this morning and PT is cleared to work with patient. The patient reports that she lives in [place] with her in a house; however, she states that after her surgery she is going to go stay with her sister who lives near [place] and she will have some stairs to maneuver to get into and out of the home where she will be staying. The patient reports that prior to her surgery she was using a single point cane for ambulation and reports that she was having some weakness of her left lower extremity. The patient reports that she has had a history of two previous total knee replacements. She states that both sides are doing fairly well. The patient denies any recent falls. The patient states that she had lost quite a bit of weight, but in the last year has put 100 pounds of the weight back on, which has been limiting her mobility too. The patient reports that she is very anxious to work with PT and is very nervous about trying to sit edge of bed as with her pain level right now she doesn't feel like she wants to move. PAST MEDICAL HISTORY: Past medical history can be found in the patient's medical record. OBJECTIVE FINDINGS: General observations: The patient was alert and oriented to setting upon PT arrival. The patient did have two drains in place including the PREVENA vac, oxygen, IV, and a catheter. The patient was first instructed on lumbar precautions to include no bending/lifting/twisting and we did discuss wearing her brace whenever she is up and also how to log roll into and out of bed. Bed mobility: The patient required max verbal and tactile cueing and she did log roll to her right side. She did require max assist of two in order to roll to the right side and max assist of two in order to go from sidelying to sitting. Once in a sitting position, the patient reported that she was very short of breath. Her oxygen saturation was in the high 90s. She was also feeling nauseous but she did not have any vomiting. She denied any lightheadedness. The patient sat edge of bed for a little bit and once the patient was feeling better the therapist did place the back brace around her in order to check which size would be the most appropriate. We instructed the patient on how to log roll back into bed. This did require max assist of three; two people to help bring her lower extremities up and another person to help guide her down onto the right side. Once in that position she required assist of three in order to roll onto her back. Once she was laying supine we did instruct her in some bed mobility and the patient was able to reposition herself in bed with max cueing. Transfers: The back brace was secured and a gait belt was placed around the patient. The bed was raised a little bit and with assist of two, the patient transferred from a sitting to standing position. In a standing position the patient demonstrated fair standing balance with hand hold assist x2 on a front wheeled walker and contact guard assist x2 for safety. The patient did well with standing and did not report any increase in pain. Ambulation: Once standing, the patient did perform side stepping for approximately five feet to the right with max cueing and contact guard assist. The patient received tactile cueing to place her hands in correct placement and sat back onto the bed. ASSESSMENT: The patient has fair rehab potential secondary to her age and her current mobility level. Short-Term Goals: To be met by discharge from inpatient: Patient will be able to log roll to get into and out of bed independently. Patient will be able to don and doff her brace independently. Patient will be able to transfer from sit to stand safely and independently. Patient will be able to ambulate at least 150 feet with least restrictive assistive device safely. Patient will be able to ascend and descent at least five stairs with least restrictive assistive device. Long-Term Goals: To be met following discharge from inpatient: Patient may be seen by outpatient physical therapy if deemed necessary by her surgeon. TREATMENT PLAN: Patient will be seen B.I.D during the week and one time per day over the weekend as an inpatient to address the above goals and objectives. INITIAL TREATMENT: Treatment today consisted of the initial evaluation followed by one unit of functional activity. Following treatment the patient was left in bed with call light within reach and bed alarm set. [facility]
[2019-01-26] MEDS ORDERED: SODIUM CL 0.9% FOR INH 3 ML NEB NEB ONE (13:29)
[2019-01-26] MEDS: oxyCODONE-ACETAMINOPHEN 5-325 TAB PO PRN ×3 (13:33→21:59)
[2019-01-26] MEDS: CYCLOBENZAPRINE 10 MG TABLET PO SCH ×2 (15:32→20:37)
--- NOTE | 2019-01-26 15:37 | OTI REPORT ---
Thank you for the referral of Ana María Vaughan. She was seen on 01/26/19 for an occupational therapy inpatient evaluation status post lumbar fusion. SUBJECTIVE: The patient is a 58-year-old female who is being seen status post lumbar fusion. The patient reports she is from [place]. The patient lives with her . She has a couple stairs to get int her home. Prior to admission the patient was having some difficulty with lower extremity dressing. They do have a little bit higher toilet as well as a bathtub with a shower chair in it. The patient reports quite a bit of pain in her back today. PAST MEDICAL HISTORY: Past medical history can be found in the patient's medical record. OBJECTIVE FINDINGS: General observations: The patient got something in her eye and it is very irritated, so she is having difficulty seeing today. The patient's chest is also hurting secondary to having a sternal rub as she was having difficulty breathing yesterday. Range of motion: The patient demonstrates upper extremity active range of motion to 100 degrees of shoulder flexion. Elbow flexion/extension was within normal limits. Wrist flexion/extension was within normal limits. Strength: Upper extremity strength was 2+/5 for flexion/abduction, 3+/5 for elbow flexion/extension, and 3+/5 for wrist flexion/extension. Activities of daily living: The patient requires max assist for all ADLs. She was issued a trimmer machine today and instructed in its use for reaching for objects. The patient reported she did not know her back precautions, so they were reviewed and demonstrated. The patient has a lot of concerns about toileting. We did discuss toilet tongs. At this time the patient still has a catheter in, so we will not practice this. Bed mobility: The patient required max assist x3 to come from supine to sit and max assist x3 to transfer from sit to supine. ASSESSMENT: Problem List: Patient would benefit from further education on adaptive equipment and assistive devices Decreased ability to complete ADLs Decreased ability to complete functional transfers Short-Term Goals: To be met by discharge from inpatient: Patient will be able to dress lower extremities independently with assistive devices while following back precautions. Patient will have full upper extremity active range of motion to improve abilities for basic ADLs. Patient will be able to complete a toilet transfer with stand by assist including donning and doffing clothes. Patient will be able to use toileting aids with modified independence. Long-Term Goals: To be met following discharge from inpatient: Patient will return home, demonstrating modified independence with all ADLs and functional transfers. TREATMENT PLAN: Patient will be seen B.I.D during the week and one time per day over the weekend as an inpatient to address the above goals and objectives. INITIAL TREATMENT: Treatment today consisted of the initial evaluation activities only. [facility]
--- NOTE | 2019-01-26 15:44 | OT.PROG ---
Progress Note Progress Note: S: pt reported pain today but understood she needed to get up. O: pt was seen in her room in supine position. She needed cues with log rolling technique to EOB along with mOd A x2. After completing therapy with PT, she completed log roll back into bed with Max A x3. She was left upright in bed in supine position. A: pt participated well today and needs to be able to completed bed mobility more Ind along with donning brace Ind. P: continue per POC.
[2019-01-26] MEDS: ERYTHROMYCIN BASE 1 GM EYE OINT EACH EYE SCH ×2 (17:21→20:39)
--- NOTE | 2019-01-26 17:22 | PT.PROG ---
Progress Note Progress Note: S. Patient stated that she would like to go for a walk. O. Patient ambulated 100 feet in the lazcano and back to her room where she was left with OT for further therapy. A. Patient tolerated ambulation well, she required min assist with transfer and ambulation. She would continue to benefit from skilled therapy to increase strength, endurance and safety at this time. P. Continue POC.
--- NOTE | 2019-01-26 20:26 | CRNA.PROGR ---
Anesthesia Note - Progress Notes Anesthesia Progress Note: Lying in room 308, PT here to assist her out of bed. Vapotherm still supplementing her respiratory system. Not tachypneic, denies SOB. States pain is bearable but significant. Did sustain a Right Corneal irritation/abrasion that is being addressed by Dr Varela. Amnestic re surgical events. Intake and Output - 8hr Totals Only 01/25/19 01/26/19 01/26/19 01/26/19 21:59 05:59 13:59 21:59 Intake Total 3800 / 4804 1004 / 4804 120 / 520 400 / 520 Output Total 156 / 2014 455 / 2015 800 / 2030 1230 / 2030 Balance 2240 / 2789 549 / 2789 -680 / -1510 -830 / -1510 CBC and BMP 01/26/19 03:50 01/26/19 03:50 Vital Signs - Last Taken Temperature 98.7 F 01/26/19 18:32 Pulse Rate 77 01/26/19 19:00 Respiratory Rate 20 01/26/19 18:32 Blood Pressure 111/61 01/26/19 18:32 Pulse Ox 96 01/26/19 18:32 Corneal irritation, pain, itch could be attributed to anesthesia.
[2019-01-26] MEDS: Pravastatin Tab 40 MG TAB PO SCH (20:38)
[2019-01-26] MEDS: ESCITALOPRAM 10 MG TABLET PO SCH (20:39)
[2019-01-27] MEDS: oxyCODONE-ACETAMINOPHEN 5-325 TAB PO PRN ×2 (02:07→15:56)
[2019-01-27] MEDS: HYDROcodone-APAP 5 MG -325 MG TABLET PO PRN ×6 (04:04→21:32)
[2019-01-27 04:56] LABS: VENOUS PH 7.44 (7.32-7.42)
[2019-01-27 05:18] LABS: BASOPHILS # (AUTO) 0.01 10*3/UL; BASOPHILS % (AUTO) 0.2 % (0-1); EOSINOPHILS # (AUTO) 0.05 10*3/UL; EOSINOPHILS % (AUTO) 0.8 % (0-8); Hematocrit [HCT] 25.7 % (37.0-47.0); Hemoglobin [HGB] 7.9 g/dL (12.0-16.0); LYMPHOCYTES # (AUTO) 0.96 10*3/uL; MEAN CORPUSCULAR HEMOGLOBIN 29.7 PG (27-31); MEAN CORPUSCULAR HGB CONC 30.7 g/dL (33-37); MEAN CORPUSCULAR VOLUME 96.6 FL (81-99); MEAN PLATELET VOLUME 10.3 FL (7.4-12.2); MONOCYTES % (AUTO) 8.1 % (5-15); NEUTROPHILS # (AUTO) 4.63 10*3/UL; NEUTROPHILS % (AUTO) 75.1 % (50-80); RED BLOOD COUNT 2.66 10^6/uL (4.20-5.40)
[2019-01-27 05:23] LABS: PLATELET MORPHOLOGY COMMENT NORMAL MORPHOLOGY (NORM); RBC MORPHOLOGY COMMENT NORMAL MORPHOLOGY (NORM); WBC MORPHOLOGY COMMENT NORMAL MORPHOLOGY (NORM)
[2019-01-27 05:24] LABS: BLOOD UREA NITROGEN 13 mg/dL (7-22)
[2019-01-27 05:31] LABS: HEMOGLOBIN A1C 6.27 % (4.2-6.0)
[2019-01-27] MEDS: LEVOTHYROXINE 88 MCG TABLET PO SCH (06:10)
[2019-01-27] MEDS: Insulin Lispro Flexpen 300 UNIT/3 ML INSULN.PEN SUBCUT SCH ×3 (07:09→18:06)
[2019-01-27] MEDS: DOCUSATE 100 MG CAPSULE PO SCH ×2 (08:16→21:34)
[2019-01-27] MEDS: CYCLOBENZAPRINE 10 MG TABLET PO SCH ×3 (08:16→21:34)
[2019-01-27] MEDS: FUROSEMIDE 40 MG TABLET PO SCH (08:16)
[2019-01-27] MEDS: DIVALPROEX SODIUM 250 MG TABLET PO SCH ×2 (08:17→21:34)
[2019-01-27] MEDS: DICYCLOMINE 20 MG TABLET PO SCH ×4 (08:17→21:33)
[2019-01-27] MEDS: FAMOTIDINE 40 MG TABLET PO SCH (08:17)
[2019-01-27] MEDS: ERYTHROMYCIN BASE 1 GM EYE OINT EACH EYE SCH ×4 (08:17→21:35)
[2019-01-27] MEDS: Calcium/Vit D 600mg/400u Tab 1 TAB TABLET PO SCH (08:17)
[2019-01-27] MEDS: PREGABALIN 100 MG CAPSULE PO SCH ×2 (08:17→21:33)
[2019-01-27] MEDS: OMEPRAZOLE 20 MG CAPSULE PO SCH ×2 (08:17→21:34)
[2019-01-27] MEDS: Potassium Chloride Tab 10 MEQ TAB PO SCH (08:17)
--- NOTE | 2019-01-27 08:19 | NEURO.PROG ---
Subjective Post Op Day: 2 Pain Management: PO Carmen Catheter: Yes Diet: Regular Ambulating: Yes Additional Details: Mrs Vaughan is awake and alert and moving all four extremities. She has good arm strength without numbness or tingling. Dorsi/plantar flexion and knee flexion strong bilaterally. Denies numbness, pain or tingling. She does complain of surgical site pain with activity. Her right eye is still bothering her some, and mild injection persists. Prevena dressing intact and functioning on her back. One hemovac drain in place with drainage less than 200ml. Carmen catheter in place at patients request because of her reluctance to need to get out of bed. She did ambulate 100 ft with PT yesterday and felt like it went well. She will have 4 or 5 steps to get into her sister's house when she discharges so will need to do stairs with PT as well. She feels like she will be ready to go home on Wednesday. Plan Continue to mobilize Discontinue carmen catheter if OK with Dr Dias Maintain hemovac drain today. Objective : Data - Labs CBC and BMP: 01/27/19 04:41 01/27/19 04:41 - Vital Signs Vital Signs and I&O: Vital Signs - Last Taken Temperature 98.3 F 01/27/19 06:53 Pulse Rate 74 01/27/19 06:53 Respiratory Rate 15 01/27/19 06:53 Blood Pressure 137/63 01/27/19 06:53 Pulse Ox 97 01/27/19 06:53 Intake and Output (24hr x 4 totals) 01/25/19 01/26/19 01/27/19 01/28/19 05:59 05:59 05:59 05:59 Intake Total 4804 / 4804 1120 / 1120 300 / 300 Output Total 2014 2760 / 2760 200 / 200 Balance 2789 / 2789 -1640 / -1640 100 / 100
[2019-01-27] MEDS ORDERED: POTASSIUM CHLORIDE 20 MEQ TAB PO ONE (10:11)
--- NOTE | 2019-01-27 12:06 | PT.PROG ---
Progress Note Progress Note: S. patient stated that she is sore this morning, however agreed to go for a walk. O. Patient ambulated 150 feet around the nurses station and back to her room where she performed sit to stands x 5 then was left in her chair with alarm and call light. A. Patient tolerated therapy well this morning, She continues to require min to mod assist with bed mobility and sit to stand transfers, she is unable to don and doff her back brace independently. She is concerned about her sister taking care of her at home and is interested in going to a rehab facility for a short period of time. Patient would continue to benefit from skilled therapy to increase strength, endurance and safety at this time. P. Continue POC.
--- NOTE | 2019-01-27 13:06 | PDOC(PROG) ---
Date of Service: 01/27/19 Time of Service: 13:01 Interval History: Seen, evaluated earlier. Had oversedation yesterday to the point where she needed [id number] and reversal from probably Valium, but I suspect it was a combination of narcotics as well although she did respond to flumazenil. That being said, there is some confusion as to which narcotic the patient is responding best to her as being more sedated from in terms of Percocet and hydrocodone. Patient will work with RN today to figure out which pain medication seems to help the most and we will discontinue the other one. Hemoglobin borderline, but no need for transfusion today. Patient is not symptomatic from chest pain, shortness breath, nausea or vomiting. No dizziness or presyncopal symptoms. Objective : Data - Labs CBC and BMP: 01/27/19 04:41 01/27/19 04:41 Objective : Exam - General General Appearance: No Acute Distress, Cooperative Additional General Exam Details: Vital Signs - Last Taken Temperature 98.6 F 01/27/19 11:30 Pulse Rate 68 01/27/19 11:30 Respiratory Rate 12 01/27/19 11:30 Blood Pressure 132/62 01/27/19 11:30 Pulse Ox 99 01/27/19 11:30 Much more alert today. - Eye Eye Exam: No Scleral Icterus - ENT ENT Exam: Mucous Membranes Moist - Neck Neck Exam: JVP is not Raised - Respiratory Respiratory Exam: Clear to Auscultation - Bilaterally, Breathing Non Labored - Cardiovascular Cardiovascular Exam: RRR, No Murmur, No Clicks, No Gallops, No Rubs, No JVD - GI/Abdominal GI/Abdominal Exam: Normal Bowel Sounds, Non Tender, Non Distended, Soft - Extremities Extremities Exam: No Clubbing Present, No Edema Present, No Cyanosis Present - Neurological Neurological Exam: Alert, Oriented x 3, No Facial Droop, Speech Intact / Clear, Moves All Extremities Equally Assessment and Plan - Patient Problems (1) Acute hypoxemic respiratory failure Current Visit: Yes Status: Acute Code(s): J96.01 - Acute respiratory failure with hypoxia (2) Postoperative anemia Current Visit: Yes Status: Acute Code(s): D64.9 - Anemia, unspecified (3) Diabetes Current Visit: Yes Status: Acute Code(s): E11.9 - Type 2 diabetes mellitus without complications Qualifiers: Diabetes mellitus type: type 2 Diabetes mellitus living skills advisor insulin use: with fpc use Diabetes mellitus complication status: without complication Qualified Code(s): E11.9 - Type 2 diabetes mellitus without complications; Z79.4 - control panel builder (current) use of insulin (4) Sleep apnea Current Visit: Yes Status: Chronic Code(s): G47.30 - Sleep apnea, unspecified Qualifiers: Sleep apnea type: obstructive Qualified Code(s): G47.33 - Obstructive sleep apnea (adult) (pediatric) (5) GERD (gastroesophageal reflux disease) Current Visit: Yes Status: Chronic Code(s): K21.9 - Gastro-esophageal reflux disease without esophagitis (6) Chronic neck and back pain Current Visit: Yes Status: Chronic Code(s): M54.2 - Cervicalgia; M54.9 - Dorsalgia, unspecified; G89.29 - Other chronic pain (7) Depression Current Visit: Yes Status: Chronic Code(s): F32.9 - Major depressive disorder, single episode, unspecified Qualifiers: Depression Type: other depression Qualified Code(s): F32.89 - Other specified depressive episodes (8) High cholesterol Current Visit: Yes Status: Chronic Code(s): E78.00 - Pure hyperch olesterolemia, unspecified (9) Hypothyroidism Current Visit: Yes Status: Acute Code(s): E03.9 - Hypothyroidism, unspecified Qualifiers: Hypothyroidism type: acquired Qualified Code(s): E03.9 - Hypothyroidism, unspecified (10) Acute hypercapnic respiratory failure Current Visit: Yes Status: Resolved Code(s): J96.02 - Acute respiratory failure with hypercapnia - Assessment / Plan Additional Assessment/Plan Details: Seems to have resolving acute hypoxemic respiratory failure. Now down to about 1 L per nasal cannula. Okay to discontinue Alfaro catheter. I encouraged patient to work with RN today to figure out which pain medication seems to help the best to avoid further confusion on pain medications and/or benzodiazepines for this patient. She cannot tolerate this from a respiratory standpoint to be on multiple doses. Hemoglobin borderline today, not symptomatic to justify transfusion. However, check labs again in morning and 7-1/2 or below, may need to consider transfusion. Continue PT and OT. Patient would like to opt for acute rehabilitation, and I rn field case manager where in helping patient with that issue.
--- NOTE | 2019-01-27 14:24 | OT.PROG ---
Progress Note Progress Note: OT Daily Note 01/27/19 S: pt reports she was ready for therapy. pt reports that her pain levels are at 7/10 although she is use to the pain and knows she has to push through it. pt reports she is hoping to go to [facility] for rehab. O: pt reported she would go on a walk although needed to use the restroom. pt was able complete bed mobility mod A, pt was able to ambulate into the restroom with CGA. pt use tongs for wiping and was able to set up the tongs and attempted to wipe although reported after that she stil felt wet so she required mod A to complete wiping. a: pt is doing well, she is tolerating her pain levels and would benefit from a skilled therapy facility P:cont per POC
--- NOTE | 2019-01-27 15:31 | PT.PROG ---
Progress Note Progress Note: S. patient she would go for a walk this afternoon. She reports her pain as a 7/10 O. Patient ambulated 150 feet around the nurses station and back to her room where she performed sit to stands x 3 then was left in her chair with alarm and call light. A. Patient tolerated therapy well this morning, She continues to require min to mod assist with bed mobility and sit to stand transfers, Patient would continue to benefit from skilled therapy to increase strength, endurance and safety at this time. P. Continue POC.
[2019-01-27] MEDS: ESCITALOPRAM 10 MG TABLET PO SCH (21:34)
[2019-01-27] MEDS: Pravastatin Tab 40 MG TAB PO SCH (21:34)
[2019-01-28 04:30] LABS: Hematocrit [HCT] 23.9 % (37.0-47.0); Hemoglobin [HGB] 7.7 g/dL (12.0-16.0); MEAN CORPUSCULAR HEMOGLOBIN 30.4 PG (27-31); MEAN CORPUSCULAR HGB CONC 32.2 g/dL (33-37); MEAN CORPUSCULAR VOLUME 94.5 FL (81-99); RED BLOOD COUNT 2.53 10^6/uL (4.20-5.40)
[2019-01-28 04:44] LABS: BLOOD UREA NITROGEN 14 mg/dL (7-22)
[2019-01-28] MEDS: LEVOTHYROXINE 88 MCG TABLET PO SCH (06:00)
[2019-01-28] MEDS: HYDROcodone-APAP 5 MG -325 MG TABLET PO PRN ×4 (06:01→21:41)
[2019-01-28 06:26] LABS: BASOPHILS # (AUTO) 0.01 10*3/UL; BASOPHILS % (AUTO) 0.2 % (0-1); EOSINOPHILS # (AUTO) 0.14 10*3/UL; EOSINOPHILS % (AUTO) 2.5 % (0-8); Hematocrit [HCT] 24.2 % (37.0-47.0); Hemoglobin [HGB] 7.7 g/dL (12.0-16.0); LYMPHOCYTES # (AUTO) 0.99 10*3/uL; MEAN CORPUSCULAR HEMOGLOBIN 30.3 PG (27-31); MEAN CORPUSCULAR HGB CONC 31.8 g/dL (33-37); MEAN CORPUSCULAR VOLUME 95.3 FL (81-99); MEAN PLATELET VOLUME 9.4 FL (7.4-12.2); MONOCYTES # (AUTO) 0.52 10*3/UL (0.3-0.8); MONOCYTES % (AUTO) 9.1 % (5-15); NEUTROPHILS # (AUTO) 4.02 10*3/UL; NEUTROPHILS % (AUTO) 70.6 % (50-80); RED BLOOD COUNT 2.54 10^6/uL (4.20-5.40)
[2019-01-28 06:27] LABS: PLATELET MORPHOLOGY COMMENT NORMAL MORPHOLOGY (NORM); RBC MORPHOLOGY COMMENT NORMAL MORPHOLOGY (NORM); WBC MORPHOLOGY COMMENT NORMAL MORPHOLOGY (NORM)
--- NOTE | 2019-01-28 06:29 | EKG ---
[address] [address] Measurements Intervals [place] Rate: 132 P: [place]: 0 QRS: 31 QRSD: 92 T: 0 QT: 307 QTc: 385 Interpretive Statements ATRIAL FIBRILLATION WITH RAPID VENTRICULAR RESPONSE NONSPECIFIC ST & T-WAVE ABNORMALITY ABNORMAL RHYTHM ECG No previous ECG available for comparison Electronically Signed On 01-28-19 10:56:19 MDT by Hu Hernandez [email or web address]
[2019-01-28 06:36] LABS: BLOOD UREA NITROGEN 13 mg/dL (7-22); SERUM ALBUMIN 2.8 g/dL (3.5-4.8)
[2019-01-28] MEDS ORDERED: METOPROLOL TARTRATE 5 MG/5 ML VIAL IVP ONE (06:37)
[2019-01-28] MEDS: FUROSEMIDE 40 MG TABLET PO SCH (07:10)
[2019-01-28] MEDS: Insulin Lispro Flexpen 300 UNIT/3 ML INSULN.PEN SUBCUT SCH ×3 (08:27→17:31)
[2019-01-28] MEDS ORDERED: DILTIAZEM 5 MG/ML - 5 ML IV ONE (08:43)
--- NOTE | 2019-01-28 08:43 | OT.PROG ---
Progress Note Progress Note: S: pt stated that she wanted to use the bathroom and agreed to therapy. O: pt completed bed mobility from supine to EOb with MOD A due to pain and soreness. pt then completed functional transfer to bathroom where pt was educated on use of toilet tongs for toileting hygiene. pt completed toileting tasks independently and toileting hygiene was completed with additional education. A: pt tolerated session well. pt is concerned about how low the toilet is at her sisters house and is interested in a toilet frame or handles. pt needed multiple rest breaks. pt reported that she was a little nervous with moving around and getting up. P: continue POC Addendum entered and electronically signed by Александр Fraser 01/28/19 08:43: tx date 01/27/19 at 08:15
[2019-01-28] MEDS ORDERED: Diltiazem Drip 125 MG in Sodium Chloride 0.9% 100 ML IV SCH ×2 (08:45→11:28)
[2019-01-28] MEDS ORDERED: Potassium Chloride Tab 10 MEQ TAB PO SCH (09:00)
[2019-01-28] MEDS: ALBUTEROL INH SCH ×2 (09:05→09:06)
[2019-01-28] MEDS ORDERED: Sodium Chloride 0.9% 1,000 ML PRIMARY IV ONE (09:09)
--- NOTE | 2019-01-28 09:25 | NEURO.PROG ---
Subjective Post Op Day: 3 Pain Management: PO Alfaro Catheter: No Flatus: Yes Diet: Constant carbohydrate Ambulating: Yes Additional Details: Appears comfortable in chair. Back "sore". Denies leg symptoms. Moving all extremities well. Has been ambulating. Atrial fibrillation with RVR. Not symptomatic. Rate not controlled with metoprolol. Cardizem bolus and drip to pending. Drain output decreased, 50 cc; drains to be pulled. Okay to start on anticoagulation if needed for Afib. If rate not controlled may be transferred to [place] for Cardiology evalution. If rate controlled, patient would like to look into [facility] in [place] for rehab. Objective : Data - Labs CBC and BMP: 01/28/19 06:25 01/28/19 06:25 - Vital Signs Vital Signs and I&O: Vital Signs - Last Taken Temperature 98.6 F 01/28/19 07:04 Pulse Rate 147 H 01/28/19 07:10 Respiratory Rate 22 01/28/19 07:04 Blood Pressure 115/61 01/28/19 07:10 Pulse Ox 92 01/28/19 07:04 Intake and Output (24hr x 4 totals) 01/26/19 01/27/19 01/28/19 01/29/19 05:59 05:59 05:59 05:59 Intake Total 4804 / 4804 1120 / 1120 2880 / 2880 Output Total 2014 2760 / 2760 1060 / 1060 80 / 80 Balance 2789 / 2789 -1640 / -1640 1820 / 1820 -80 / -80
[2019-01-28] MEDS ORDERED: ACETAMINOPHEN 325 MG TABLET PO ONE ×2 (09:38→11:28)
[2019-01-28] MEDS ORDERED: Sodium Chloride 0.9% 500 ML PRIMARY IV ONE ×3 (09:38→11:28)
[2019-01-28] MEDS: DICYCLOMINE 20 MG TABLET PO SCH ×4 (09:43→21:10)
[2019-01-28] MEDS: DOCUSATE 100 MG CAPSULE PO SCH ×2 (09:43→21:10)
[2019-01-28] MEDS: Calcium/Vit D 600mg/400u Tab 1 TAB TABLET PO SCH (09:43)
[2019-01-28] MEDS: DIVALPROEX SODIUM 250 MG TABLET PO SCH ×2 (09:43→21:11)
[2019-01-28] MEDS: CYCLOBENZAPRINE 10 MG TABLET PO SCH ×3 (09:43→21:09)
[2019-01-28] MEDS: OMEPRAZOLE 20 MG CAPSULE PO SCH (09:44)
[2019-01-28] MEDS: ERYTHROMYCIN BASE 1 GM EYE OINT EACH EYE SCH ×4 (09:44→21:13)
[2019-01-28] MEDS: FAMOTIDINE 40 MG TABLET PO SCH (09:44)
[2019-01-28] MEDS: PREGABALIN 100 MG CAPSULE PO SCH ×2 (09:44→21:10)
[2019-01-28] MEDS ORDERED: Sodium Chloride 0.9% 250 ML ONE (09:57)
--- NOTE | 2019-01-28 11:00 | OT.PROG ---
Progress Note Progress Note: pt placed on therapy hold by nursing staff due to heart and BP issues. will check again tomorrow and attempt therapy services.
[2019-01-28] MEDS ORDERED: BISACODYL 5 MG TABLET PO PRN (11:28)
[2019-01-28] MEDS ORDERED: ONDANSETRON 4 MG/2 ML VIAL IVP PRN (11:28)
--- NOTE | 2019-01-28 11:36 | PDOC(PROG) ---
Date of Service: 01/28/19 Time of Service: 11:16 Interval History: Patient seen and evaluated earlier. Discussed with neurosurgery. [place] some palpitations. Found to be in atrial fibrillation with rapid ventricular response. Has never had this rhythm before. No nausea or vomiting. No chest pains. Back pain present but she states the burning that she had in her lower extremities prior to surgery is gone. Objective : Data - Labs CBC and BMP: 01/28/19 06:25 01/28/19 06:25 Additional Lab Results: 01/28/19 01/28/19 01/28/19 04:19 06:25 10:15 Calculated Osmolality 290.0 Troponin I < 0.012 < 0.012 01/28/19 06:25 Magnesium 2.0 Total Bilirubin 0.2 L AST 37 ALT 40 Alkaline Phosphatase 102 Total Protein 5.2 L Albumin 2.8 L Globulin 2.4 L Albumin/Globulin Ratio 1.10 L - EKG Data -: EKG Interpreted by Me Rate: Tachycardia - EKG Data EKG Interpretation: Nonspecific ST-T Wave Changes, Other (Atrial fibrillation) Objective : Exam - General General Appearance: No Acute Distress, Cooperative Additional General Exam Details: Vital Signs - Last Taken Temperature 98.6 F 01/28/19 07:04 Pulse Rate 147 H 01/28/19 07:10 Respiratory Rate 22 01/28/19 07:04 Blood Pressure 115/61 01/28/19 07:10 Pulse Ox 92 01/28/19 07:04 - Eye Eye Exam: No Scleral Icterus - ENT ENT Exam: Mucous Membranes Moist - Neck Neck Exam: JVP is not Raised - Respiratory Respiratory Exam: Clear to Auscultation - Bilaterally, Breathing Non Labored - Cardiovascular Cardiovascular Exam: No Murmur, No Clicks, No Gallops, No Rubs, Irregular Rhythm, Tachycardia - GI/Abdominal GI/Abdominal Exam: Normal Bowel Sounds, Non Tender, Non Distended, Soft - Extremities Extremities Exam: No Clubbing Present, No Cyanosis Present, +1 Edema - Neurological Neurological Exam: Alert, Oriented x 3, No Facial Droop, Speech Intact / Clear, Moves All Extremities Equally - Psychiatric Psychiatric Exam: Normal Affect, Normal Mood Assessment and Plan - Patient Problems (1) Atrial fibrillation Current Visit: Yes Status: Acute Code(s): I48.91 - Unspecified atrial fib rillation Qualifiers: Atrial fibrillation type: paroxysmal Qualified Code(s): I48.0 - Paroxysmal atrial fibrillation (2) Postoperative anemia Current Visit: Yes Status: Acute Code(s): D64.9 - Anemia, unspecified (3) Hypokalemia Current Visit: Yes Status: Acute Code(s): E87.6 - Hypokalemia (4) Acute hypoxemic respiratory failure Current Visit: Yes Status: Resolved Code(s): J96.01 - Acute respiratory failure with hypoxia (5) Diabetes Current Visit: Yes Status: Acute Code(s): E11.9 - Type 2 diabetes mellitus without complications Qualifiers: Diabetes mellitus type: type 2 Diabetes mellitus detention insulin use: with detention use Diabetes mellitus complication status: without complication Qualified Code(s): E11.9 - Type 2 diabetes mellitus without complications; Z79.4 - senior care (current) use of insulin (6) Sleep apnea Current Visit: Yes Status: Chronic Code(s): G47.30 - Sleep apnea, unspecified Qualifiers: Sleep apnea type: obstructive Qualified Code(s): G47.33 - Obstructive sleep apnea (adult) (pediatric) (7) GERD (gastroesophageal reflux disease) Current Visit: Yes Status: Chronic Code(s): K21.9 - Gastro-esophageal reflux disease without esophagitis (8) Chronic neck and back pain Current Visit: Yes Status: Chronic Code(s): M54.2 - Cervicalgia; M54.9 - Dorsalgia, unspecified; G89.29 - Other chronic pain (9) Depression Current Visit: Yes Status: Chronic Code(s): F32.9 - Major depressive disorder, single episode, unspecified Qualifiers: Depression Type: other depression Qualified Code(s): F32.89 - Other specified depressive episodes (10) High cholesterol Current Visit: Yes Status: Chronic Code(s): E78.00 - Pure hypercho lesterolemia, unspecified (11) Hypothyroidism Current Visit: Yes Status: Acute Code(s): E03.9 - Hypothyroidism, unspecified Qualifiers: Hypothyroidism type: acquired Qualified Code(s): E03.9 - Hypothyroidism, unspecified (12) Acute hypercapnic respiratory failure Current Visit: Yes Status: Resolved Code(s): J96.02 - Acute respiratory failure with hypercapnia - Assessment / Plan Additional Assessment/Plan Details: Tried metoprolol, and this did not really help in terms of heart rate control. Troponins thus far do not show evidence of myocardial infarction. We'll trend up troponins, replace electrolytes and check BMP and troponins later today. If we cannot get control of heart rate, will need to transfer to facility with clinical psychology professor. Otherwise we can do outpatient workup with echocardiogram and cardiology evaluation if we can get control of the heart rate. We discussed anticoagulation. Chads-vasc2 score is 2. I think she would benefit from anticoagulation for the time being with evaluation should this be postoperative atrial fibrillation lasting less than 48 hours one could consider stopping anticoagulation if that were the case. However, if she has prolonged atrial fibrillation beyond that, she may benefit from longer term anticoagulation. The patient and I spoke in depth regarding Coumadin versus Xarelto versus Eliquis, including all risks and benefits, risks being bleeding complications and possible pitfalls of not being able to reverse bleeding with antidotes, and benefits of prevention of stroke, lack of drug interactions, and ease of therapy in terms of lab monitoring. The patient chose Eliquis . I will check a TSH and free T4 If we can get rate controlled, we'll try to arrange cardiology follow-up in [place] when patient is in rehabilitation, but again if we cannot control rate then we will get patient to inpatient facility for cardiac evaluation. The patient's hemoglobin has dropped to 7.7. Given atrial fibrillation, hypokalemia, I think it would benefit patient to do blood transfusion and replace potassium. We spoke about the potential risks of blood transfusion and the patient was okay with proceeding with this plan. Given need for drip, transfer to ICU.
[2019-01-28] MEDS: Apixaban 5 MG TABLET PO SCH ×2 (13:35→21:11)
[2019-01-28] MEDS ORDERED: ESCITALOPRAM 10 MG TABLET PO SCH (21:00)
[2019-01-28] MEDS ORDERED: Pravastatin Tab 40 MG TAB PO SCH (21:00)
[2019-01-28 23:13] LABS: BASOPHILS # (AUTO) 0.01 10*3/UL; BASOPHILS % (AUTO) 0.2 % (0-1); EOSINOPHILS # (AUTO) 0.28 10*3/UL; EOSINOPHILS % (AUTO) 4.4 % (0-8); Hematocrit [HCT] 30.8 % (37.0-47.0); Hemoglobin [HGB] 9.8 g/dL (12.0-16.0); MEAN CORPUSCULAR HEMOGLOBIN 30.2 PG (27-31); MEAN CORPUSCULAR HGB CONC 31.8 g/dL (33-37); MEAN CORPUSCULAR VOLUME 94.8 FL (81-99); MONOCYTES # (AUTO) 0.64 10*3/UL (0.3-0.8); MONOCYTES % (AUTO) 10.1 % (5-15); NEUTROPHILS # (AUTO) 4.15 10*3/UL; NEUTROPHILS % (AUTO) 65.8 % (50-80); PLATELET MORPHOLOGY COMMENT NORMAL MORPHOLOGY (NORM); RBC MORPHOLOGY COMMENT NORMAL MORPHOLOGY (NORM); RED BLOOD COUNT 3.25 10^6/uL (4.20-5.40); WBC MORPHOLOGY COMMENT NORMAL MORPHOLOGY (NORM)
[2019-01-29] MEDS: HYDROcodone-APAP 5 MG -325 MG TABLET PO PRN ×5 (02:57→20:59)
[2019-01-29 04:39] LABS: Hematocrit [HCT] 28.1 % (37.0-47.0); Hemoglobin [HGB] 8.8 g/dL (12.0-16.0); MEAN CORPUSCULAR HEMOGLOBIN 29.4 PG (27-31); MEAN CORPUSCULAR HGB CONC 31.3 g/dL (33-37); MEAN PLATELET VOLUME 10.2 FL (7.4-12.2); RED BLOOD COUNT 2.99 10^6/uL (4.20-5.40)
[2019-01-29 04:46] LABS: BLOOD UREA NITROGEN 14 mg/dL (7-22); BUN/CREATININE RATIO 23.33 (6-20)
[2019-01-29] MEDS ORDERED: LEVOTHYROXINE 88 MCG TABLET PO SCH (05:30)
[2019-01-29] MEDS: Insulin Lispro Flexpen 300 UNIT/3 ML INSULN.PEN SUBCUT SCH ×3 (07:42→16:15)
--- NOTE | 2019-01-29 07:43 | NEURO.PROG ---
Subjective Post Op Day: 4 Pain Management: PO Alfaro Catheter: No Diet: Constant carbohydrate Ambulating: Yes Additional Details: Awake and alert. Sitting comfortably in chair. Feels better today. Cardioverted; now in sinus rythym. A lot of gas, but no bowel movement yet. Will likely come out of monitored unit today. Would like to go to [facility] in [place] for rehab. Objective : Data - Labs CBC and BMP: 01/29/19 04:05 01/29/19 04:05 - Vital Signs Vital Signs and I&O: Vital Signs - Last Taken Temperature 98.3 F 01/29/19 07:00 Pulse Rate 60 01/29/19 07:00 Respiratory Rate 14 01/29/19 07:00 Blood Pressure 134/66 01/29/19 07:00 Pulse Ox 96 01/29/19 07:00 Intake and Output (24hr x 4 totals) 01/27/19 01/28/19 01/29/19 01/30/19 05:59 05:59 05:59 05:59 Intake Total 1120 / 1120 2880 / 2880 3201 / 3201 Output Total 2760 / 2760 1060 / 1060 680 / 680 Balance -1640 / -1640 1820 / 1820 2521 / 2521
[2019-01-29] MEDS: DICYCLOMINE 20 MG TABLET PO SCH ×4 (08:44→21:01)
[2019-01-29] MEDS: CYCLOBENZAPRINE 10 MG TABLET PO SCH ×3 (08:44→20:58)
[2019-01-29] MEDS: ERYTHROMYCIN BASE 1 GM EYE OINT EACH EYE SCH ×4 (08:44→21:01)
[2019-01-29] MEDS: DIVALPROEX SODIUM 250 MG TABLET PO SCH ×2 (08:44→21:00)
[2019-01-29] MEDS: DOCUSATE 100 MG CAPSULE PO SCH ×2 (08:44→20:58)
[2019-01-29] MEDS: PREGABALIN 100 MG CAPSULE PO SCH ×2 (08:45→21:01)
[2019-01-29] MEDS: Apixaban 5 MG TABLET PO SCH ×2 (08:45→21:00)
[2019-01-29] MEDS ORDERED: FAMOTIDINE 40 MG TABLET PO SCH (09:00)
[2019-01-29] MEDS ORDERED: Potassium Chloride Tab 10 MEQ TAB PO SCH (09:00)
[2019-01-29] MEDS ORDERED: Calcium/Vit D 600mg/400u Tab 1 TAB TABLET PO SCH (09:00)
[2019-01-29] MEDS ORDERED: POTASSIUM CHLORIDE 20 MEQ TAB PO ONE (10:24)
[2019-01-29] MEDS ORDERED: DILTIAZEM HCL CD 120 MG CAP PO ONE (10:25)
--- NOTE | 2019-01-29 11:09 | PDOC(PROG) ---
Date of Service: 01/29/19 Time of Service: 11:04 Interval History: doing well this morning. no chest pain. was in sinus rhythm all night, spontaneously converted no SOB no nausea or vomiting passing gas Objective : Data - Labs CBC and BMP: 01/29/19 04:05 01/29/19 04:05 Objective : Exam - General General Appearance: No Acute Distress, Cooperative Additional General Exam Details: Vital Signs - Last Taken Temperature 97.3 F 01/29/19 09:00 Pulse Rate 59 L 01/29/19 10:00 Respiratory Rate 15 01/29/19 10:00 Blood Pressure 119/62 01/29/19 10:00 Pulse Ox 92 01/29/19 10:00 - Eye Eye Exam: No Scleral Icterus - ENT ENT Exam: Mucous Membranes Moist - Neck Neck Exam: JVP is not Raised - Respiratory Respiratory Exam: Clear to Auscultation - Bilaterally, Breathing Non Labored - Cardiovascular Cardiovascular Exam: RRR, No Murmur, No Clicks, No Gallops, No Rubs, No JVD - GI/Abdominal GI/Abdominal Exam: Non Tender, Non Distended, Soft - Extremities Extremities Exam: No Clubbing Present, No Cyanosis Present, +1 Edema - Neurological Neurological Exam: Alert, Oriented x 3, No Facial Droop, Speech Intact / Clear, Moves All Extremities Equally - Psychiatric Psychiatric Exam: Normal Affect, Normal Mood Assessment and Plan - Patient Problems (1) Atrial fibrillation Current Visit: Yes Status: Acute Code(s): I48.91 - Unspecified atrial fibrillation Qualifiers: Atrial fibrillation type: paroxysmal Qualified Code(s): I48.0 - Paroxysmal atrial fibrillation (2) Postoperative anemia Current Visit: Yes Status: Acute Code(s): D64.9 - Anemia, unspecified (3) Hypokalemia Current Visit: Yes Status: Acute Code(s): E87.6 - Hypokalemia (4) Acute hypoxemic respiratory failure Current Visit: Yes Status: Resolved Code(s): J96.01 - Acute respiratory failure with hypoxia (5) Diabetes Current Visit: Yes Status: Acute Code(s): E11.9 - Type 2 diabetes mellitus without complications Qualifiers: Diabetes mellitus type: type 2 Diabetes mellitus snf insulin use: with snf use Diabetes mellitus complication status: without complication Qualified Code(s): E11.9 - Type 2 diabetes mellitus without complications; Z79.4 - halfway (current) use of insulin (6) Sleep apnea Current Visit: Yes Status: Chronic Code(s): G47.30 - Sleep apnea, unspecified Qualifiers: Sleep apnea type: obstructive Qualified Code(s): G47.33 - Obstructive sleep apnea (adult) (pediatric) (7) GERD (gastroesophageal reflux disease) Current Visit: Yes Status: Chronic Code(s): K21.9 - Gastro-esophageal reflux disease without esophagitis (8) Chronic neck and back pain Current Visit: Yes Status: Chronic Code(s): M54.2 - Cervicalgia; M54.9 - Dorsalgia, unspecified; G89.29 - Other chronic pain (9) Depression Current Visit: Yes Status: Chronic Code(s): F32.9 - Major depressive disorder, single episode, unspecified Qualifiers: Depression Type: other depression Qualified Code(s): F32.89 - Other specified depressive episodes (10) High cholesterol Current Visit: Yes Status: Chronic Code(s): E78.00 - Pure hypercholesterolemia, unspecified (11) Hypothyroidism Current Visit: Yes Status: Acute Code(s): E03.9 - Hypothyroidism, unspecified Qualifiers: Hypothyroidism type: acquired Qualified Code(s): E03.9 - Hypothyroidism, unspecified (12) Acute hypercapnic respiratory failure Current Visit: Yes Status: Resolved Code(s): J96.02 - Acute respiratory failure with hypercapnia - Assessment / Plan Additional Assessment/Plan Details: anemia is improved, but now down another point on Hb, check CBC in AM convert to PO cardizem, continue eliquis. given this was less than 48 hours, likely patient will not need snf anticoagulation for CVA prevention I think the afib was likely a result of anemia and hypokalemia arrange cardiology evaluation in [place] as outpatient I am anticipating a month of cardizem CD and eliquis, cardiology evaluation to determine if this is just paroxysmal afib or intermittent afib that would require more ad terminal makeup operator approaches to management replace potassium stop Cardizem drip labs in AM transfer out of ICU to floor status. PT and OT
[2019-01-29] MEDS ORDERED: BISACODYL 5 MG TABLET PO PRN (11:19)
[2019-01-29] MEDS ORDERED: ONDANSETRON 4 MG/2 ML VIAL IVP PRN (11:19)
[2019-01-29] MEDS: ESCITALOPRAM 10 MG TABLET PO SCH (20:58)
[2019-01-29] MEDS: Pravastatin Tab 40 MG TAB PO SCH (21:00)
[2019-01-30] MEDS: HYDROcodone-APAP 5 MG -325 MG TABLET PO PRN ×6 (01:04→23:02)
[2019-01-30 04:39] LABS: Hematocrit [HCT] 28.1 % (37.0-47.0); Hemoglobin [HGB] 8.8 g/dL (12.0-16.0); MEAN CORPUSCULAR HEMOGLOBIN 29.5 PG (27-31); MEAN CORPUSCULAR HGB CONC 31.3 g/dL (33-37); MEAN CORPUSCULAR VOLUME 94.3 FL (81-99); MEAN PLATELET VOLUME 9.7 FL (7.4-12.2); RED BLOOD COUNT 2.98 10^6/uL (4.20-5.40)
[2019-01-30 04:53] LABS: BLOOD UREA NITROGEN 17 mg/dL (7-22)
[2019-01-30] MEDS: LEVOTHYROXINE 88 MCG TABLET PO SCH (05:26)
[2019-01-30] MEDS: Insulin Lispro Flexpen 300 UNIT/3 ML INSULN.PEN SUBCUT SCH ×3 (07:34→16:39)
[2019-01-30] MEDS ORDERED: DILTIAZEM HCL CD 120 MG CAP PO SCH (09:00)
[2019-01-30] MEDS: Calcium/Vit D 600mg/400u Tab 1 TAB TABLET PO SCH (09:38)
[2019-01-30] MEDS: PREGABALIN 100 MG CAPSULE PO SCH ×2 (09:39→21:00)
[2019-01-30] MEDS: FAMOTIDINE 40 MG TABLET PO SCH (09:39)
[2019-01-30] MEDS: DOCUSATE 100 MG CAPSULE PO SCH ×2 (09:39→20:59)
[2019-01-30] MEDS: Potassium Chloride Tab 10 MEQ TAB PO SCH (09:39)
[2019-01-30] MEDS: DICYCLOMINE 20 MG TABLET PO SCH ×4 (09:40→21:01)
[2019-01-30] MEDS: DILTIAZEM HCL CD 120 MG CAP PO SCH (09:40)
[2019-01-30] MEDS: DIVALPROEX SODIUM 250 MG TABLET PO SCH ×2 (09:40→20:59)
[2019-01-30] MEDS: CYCLOBENZAPRINE 10 MG TABLET PO SCH ×3 (09:40→21:00)
[2019-01-30] MEDS: Apixaban 5 MG TABLET PO SCH ×2 (09:41→21:00)
[2019-01-30] MEDS: ERYTHROMYCIN BASE 1 GM EYE OINT EACH EYE SCH ×2 (09:51→13:27)
[2019-01-30] MEDS ORDERED: SODIUM CHLORIDE 0.9% IV SCH (10:30)
[2019-01-30] MEDS ORDERED: CEFAZOLIN IV SCH (10:30)
--- NOTE | 2019-01-30 10:33 | PDOC(PROG) ---
Date of Service: 01/30/19 Time of Service: 10:27 Interval History: Doing fairly well. Back pain is controlled. States that she has chronic, intermittent nausea that's associated with some foods after gastric bypass. She had gastric bypass remotely, loss 274 pounds but gained about 100 back. She states she has had multiple EGD procedures in the past, and continues to follow with weight loss surgeon in [place] as well as a mallet and die cutter there. Is chronically on Zofran for this nausea. There was concern over the wound, on my view of the wound in the middle portion there could be developing wound infection, some blistering. On Benadryl ahead and start Ancef. She has taken Keflex in the past with no problems. Her right eye does feel better. Still itchy and scratchy. Objective : Data - Labs CBC and BMP: 01/30/19 04:04 01/30/19 04:04 Objective : Exam - General General Appearance: No Acute Distress, Cooperative Additional General Exam Details: Vital Signs - Last Taken Temperature 98.5 F 01/30/19 06:58 Pulse Rate 78 01/30/19 07:00 Respiratory Rate 17 01/30/19 06:58 Blood Pressure 129/64 01/30/19 06:58 Pulse Ox 92 01/30/19 06:58 - Eye Eye Exam: No Scleral Icterus - ENT ENT Exam: Mucous Membranes Moist Eye: Other: Right Eye (watery, clear. No evidence of erythema) - Neck Neck Exam: JVP is not Raised - Respiratory Respiratory Exam: Clear to Auscultation - Bilaterally, Breathing Non Labored - Cardiovascular Cardiovascular Exam: RRR, No Murmur, No Clicks, No Gallops, No Rubs, No JVD - GI/Abdominal GI/Abdominal Exam: Normal Bowel Sounds, Non Tender, Non Distended, Soft - Extremities Extremities Exam: No Clubbing Present, No Edema Present, No Cyanosis Present - Back Additional Back Exam Details: Incision has a lot of blistering lateral to the midline. In the middle portion of the incision there appears to be some erythema, I cannot express draining pus. Possibly some surface infection. - Neurological Neurological Exam: Alert, Oriented x 3, No Facial Droop, Speech Intact / Clear, Moves All Extremities Equally Assessment and Plan - Patient Problems (1) Atrial fibrillation Current Visit: Yes Status: Acute Code(s): I48.91 - Unspecified atrial fi brillation Qualifiers: Atrial fibrillation type: paroxysmal Qualified Code(s): I48.0 - Paroxysmal atrial fibrillation (2) Postoperative anemia Current Visit: Yes Status: Acute Code(s): D64.9 - Anemia, unspecified (3) Hypokalemia Current Visit: Yes Status: Acute Code(s): E87.6 - Hypokalemia (4) Acute hypoxemic respiratory failure Current Visit: Yes Status: Resolved Code(s): J96.01 - Acute respiratory failure with hypoxia (5) Diabetes Current Visit: Yes Status: Acute Code(s): E11.9 - Type 2 diabetes mellitus without complications Qualifiers: Diabetes mellitus type: type 2 Diabetes mellitus mcc insulin use: with mcc use Diabetes mellitus complication status: without complication Qualified Code(s): E11.9 - Type 2 diabetes mellitus without complications; Z79.4 - correction (current) use of insulin (6) Sleep apnea Current Visit: Yes Status: Chronic Code(s): G47.30 - Sleep apnea, unspecified Qualifiers: Sleep apnea type: obstructive Qualified Code(s): G47.33 - Obstructive sleep apnea (adult) (pediatric) (7) GERD (gastroesophageal reflux disease) Current Visit: Yes Status: Chronic Code(s): K21.9 - Gastro-esophageal reflux disease without esophagitis (8) Chronic neck and back pain Current Visit: Yes Status: Chronic Code(s): M54.2 - Cervicalgia; M54.9 - Dorsalgia, unspecified; G89.29 - Other chronic pain (9) Depression Current Visit: Yes Status: Chronic Code(s): F32.9 - Major depressive disorder, single episode, unspecified Qualifiers: Depression Type: other depression Qualified Code(s): F32.89 - Other specified depressive episodes (10) High cholesterol Current Visit: Yes Status: Chronic Code(s): E78.00 - Pure hyperch olesterolemia, unspecified (11) Hypothyroidism Current Visit: Yes Status: Acute Code(s): E03.9 - Hypothyroidism, unspecified Qualifiers: Hypothyroidism type: acquired Qualified Code(s): E03.9 - Hypothyroidism, unspecified (12) Acute hypercapnic respiratory failure Current Visit: Yes Status: Resolved Code(s): J96.02 - Acute respiratory failure with hypercapnia (13) Wound infection Current Visit: Yes Status: Acute Comment: This is suspected. I don't know for sure if this is wound infection. Nothing to Gram stain as there is nothing draining. We'll place on Ancef for now. Lots of blistering laterally and those blister sites look okay. Code(s): T14.8XXA - Other injury of unspecified body region, initial encounter; L08.9 - Local infection of the skin and subcutaneous tissue, unspecified - Assessment / Plan Additional Assessment/Plan Details: PT for wound care therapy. Arguing against infection would be a normal white blood cell count, no fever, but I don't want to take any chances with this. Start Ancef. Stop telemetry monitoring. Continue Cardizem and Eliquis, try to arrange cardiology appointment and have spoken with case management about this. Eventually, patient will go back to [facility] for continued rehabilitation in [place]. Think this makes sense with her underlying comorbidities. Continue potassium. Zofran when necessary nausea and vomiting. I recommended to the patient should visit with her weight loss surgeon regarding any need to follow up with EGD. No signs or symptoms to suggest ulcer or other complications from her gastric bypass. I'm going to add a vitamin D level and B12 level and folic acid level given her history of gastric bypass for tomorrow's labs.
[2019-01-30] MEDS: ceFAZolin Inj 2gm (Premix) 2 GM/50 ML BAG IV SCH ×2 (11:21→20:58)
--- NOTE | 2019-01-30 11:45 | PT PM DAY ---
Diagnosis : Lumbar Fusion PM - Physical Therapy S: The patient reports no new changes. O: The patient was seen for transfer training in and out of bed and up and down out of a chair. We helped her with her lumbosacral corset as she is not independent in getting that on secondary to her obesity. The patient ambulated up to 400 feet with stand by assist of one. A: The patient did much better with her overall mobility today. We will be attempting some stair activities tomorrow and working towards getting her independent with her ADLs so that she can be transferred home. P: Continue seeing patient BID during the week and one time per day over the weekend for transfers, ambulation, and range of motion/strengthening exercises. MTDD
--- NOTE | 2019-01-30 13:06 | PT.PROG ---
Progress Note Progress Note: S. Patient stated that she is sore and tired from showering this morning, however agreed to go for a walk. O. Patient ambulated 150 feet around the nurses station and back to her room where she was left in her chair and nursing was notified. A. Patient tolerated ambulation well, she was able to don and doff back brace independently this morning. She would continue to benefit from skilled therapy to increase strength, endurance and mobility at this time. P. Continue POC.
[2019-01-30] MEDS ORDERED: TOBRAMYCIN EACH EYE SCH (14:00)
[2019-01-30] MEDS ORDERED: DEXAMETHASONE EACH EYE SCH (14:00)
--- NOTE | 2019-01-30 15:20 | PT.PROG ---
Progress Note Progress Note: S. Patient stated she would like to go for a walk. O. Patient ambulated 90 feet to the stair well then ascended and descended 5 stairs then ambulated 90 feet back to her room where she performed sit to stands x 5 then was left in her chair with alarm and call light. A. Patient tolerated ambulation and stair training well, Patient would continue to benefit from skilled therapy to increase safety and independence with ADL's. P. Continue POC.
[2019-01-30] MEDS: TOBRAMYCIN RIGHT EYE SCH ×2 (16:38→20:59)
[2019-01-30] MEDS: DEXAMETHASONE RIGHT EYE SCH ×2 (16:38→20:59)
--- NOTE | 2019-01-30 18:15 | NEURO.PROG ---
Subjective Post Op Day: 5 Pain Management: PO Alfaro Catheter: No Flatus: Yes Diet: Consistent carbohydrate Ambulating: Yes Additional Details: Awake and alert. Sitting in chair. Back "sore". Legs good; numbness resolved. Incision area still with some blistering and dusky skin edges. Continue antibiotics. Possible transfer to [facility] this week for rehab. Objective : Data - Labs CBC and BMP: 01/30/19 04:04 01/30/19 04:04 - Vital Signs Vital Signs and I&O: Vital Signs - Last Taken Temperature 97.3 F 01/30/19 16:31 Pulse Rate 68 01/30/19 16:31 Respiratory Rate 17 01/30/19 16:31 Blood Pressure 135/75 01/30/19 16:31 Pulse Ox 92 01/30/19 16:31 Intake and Output (24hr x 4 totals) 01/28/19 01/29/19 01/30/19 01/31/19 05:59 05:59 05:59 05:59 Intake Total 2880 / 2880 3201 / 3201 3347 / 3347 750 / 750 Output Total 1060 / 1060 680 / 680 325 / 325 400 / 400 Balance 1820 / 1820 2521 / 2521 3022 / 3022 350 / 350
[2019-01-30] MEDS: ESCITALOPRAM 10 MG TABLET PO SCH (21:00)
[2019-01-30] MEDS: Pravastatin Tab 40 MG TAB PO SCH (21:00)
[2019-01-31] MEDS: TOBRAMYCIN RIGHT EYE SCH ×4 (03:57→19:20)
[2019-01-31] MEDS: DEXAMETHASONE RIGHT EYE SCH ×4 (03:57→19:20)
[2019-01-31] MEDS: ceFAZolin Inj 2gm (Premix) 2 GM/50 ML BAG IV SCH ×3 (03:58→19:20)
[2019-01-31 04:51] LABS: BASOPHILS # (AUTO) 0.02 10*3/UL; BASOPHILS % (AUTO) 0.5 % (0-1); EOSINOPHILS # (AUTO) 0.19 10*3/UL; EOSINOPHILS % (AUTO) 4.4 % (0-8); LYMPHOCYTES # (AUTO) 1.15 10*3/uL; MEAN CORPUSCULAR HEMOGLOBIN 29.3 PG (27-31); MEAN CORPUSCULAR VOLUME 94.5 FL (81-99); MEAN PLATELET VOLUME 9.5 FL (7.4-12.2); MONOCYTES % (AUTO) 11.5 % (5-15); NEUTROPHILS # (AUTO) 2.44 10*3/UL; NEUTROPHILS % (AUTO) 56.3 % (50-80); RED BLOOD COUNT 3.07 10^6/uL (4.20-5.40)
[2019-01-31 04:55] LABS: BLOOD UREA NITROGEN 16 mg/dL (7-22)
[2019-01-31 04:59] LABS: PLATELET MORPHOLOGY COMMENT NORMAL MORPHOLOGY (NORM); RBC MORPHOLOGY COMMENT NORMAL MORPHOLOGY (NORM); WBC MORPHOLOGY COMMENT NORMAL MORPHOLOGY (NORM)
[2019-01-31] MEDS: LEVOTHYROXINE 88 MCG TABLET PO SCH (05:39)
[2019-01-31] MEDS: HYDROcodone-APAP 5 MG -325 MG TABLET PO PRN ×5 (06:46→23:36)
[2019-01-31] MEDS: Insulin Lispro Flexpen 300 UNIT/3 ML INSULN.PEN SUBCUT SCH ×3 (06:49→17:02)
[2019-01-31] MEDS: CYCLOBENZAPRINE 10 MG TABLET PO SCH ×3 (08:31→21:25)
[2019-01-31] MEDS: Apixaban 5 MG TABLET PO SCH ×2 (08:32→21:25)
[2019-01-31] MEDS: DICYCLOMINE 20 MG TABLET PO SCH ×4 (08:32→21:25)
[2019-01-31] MEDS: Calcium/Vit D 600mg/400u Tab 1 TAB TABLET PO SCH (08:32)
[2019-01-31] MEDS: FAMOTIDINE 40 MG TABLET PO SCH (08:33)
[2019-01-31] MEDS: Potassium Chloride Tab 10 MEQ TAB PO SCH (08:33)
[2019-01-31] MEDS: PREGABALIN 100 MG CAPSULE PO SCH ×2 (08:33→21:24)
[2019-01-31] MEDS: DIVALPROEX SODIUM 250 MG TABLET PO SCH ×2 (08:33→21:24)
[2019-01-31] MEDS: DOCUSATE 100 MG CAPSULE PO SCH ×2 (08:33→21:26)
[2019-01-31] MEDS: DILTIAZEM HCL CD 120 MG CAP PO SCH (08:33)
--- NOTE | 2019-01-31 10:30 | OT.PROG ---
Progress Note Progress Note: S: pt stated that she was feeling okay and needed to use the bathroom. O: tx consisted of donning back brace independently, STS x1, functional ambulation x20' with FWW and CGA for safety, functional transfer to toilet with use of grab bars. pt competed toileting tasks independently and toileting hygiene with MOD A after attempting to clean with toilet tongs. pt transferred back to recliner with SBA for safety. A: pt tolerated session well. pt is unable to clean herself well after a BM due to limited mobility from surgery. P: continue POC
--- NOTE | 2019-01-31 10:36 | PDOC(PROG) ---
Interval History: Patient has no complaints she states that Dr. Perez looked at her back today he was not concerned I looked at and there is no redness outside of the the bandage that its own their it is not painful when I touch around. Her white count is normal and no left shift hemoglobin stable Objective : Data - Labs CBC and BMP: 01/31/19 04:05 01/31/19 04:05 Objective : Exam - General General Appearance: Cooperative - Respiratory Respiratory Exam: Clear to Auscultation - Bilaterally, Breathing Non Labored, Normal To Percussion, Normal to Percussion and Palpation - Cardiovascular Cardiovascular Exam: RRR, No Murmur, No Clicks, No Gallops, No Rubs, PMI Non- Displaced - GI/Abdominal GI/Abdominal Exam: Normal Bowel Sounds, Non Tender, Non Distended, Soft, No Masses, No Hepatomegaly, No Splenomegaly, No Organomegaly - Back Additional Back Exam Details: No redness seen around the bandage or pain on palpation Assessment and Plan - Patient Problems (1) Chronic neck and back pain Current Visit: Yes Status: Chronic Comment: Status post surgery white count within normal limits no left shift hemoglobin is stable scheduled to go to [facility] wound care in the morning Code(s): M54.2 - Cervicalgia; M54.9 - Dorsalgia, unspecified; G89.29 - Other chronic pain (2) Depression Current Visit: Yes Status: Chronic Code(s): F32.9 - Major depressive disorder, single episode, unspecified Qualifiers: Depression Type: other depression Qualified Code(s): F32.89 - Other specified depressive episodes (3) High cholesterol Current Visit: Yes Status: Chronic Code(s): E78.00 - Pure hypercholesterolemia, unspecified (4) GERD (gastroesophageal reflux disease) Current Visit: Yes Status: Chronic Code(s): K21.9 - Gastro-esophageal reflux disease without esophagitis (5) Sleep apnea Current Visit: Yes Status: Chronic Code(s): G47.30 - Sleep apnea, unspecified Qualifiers: Sleep apnea type: obstructive Qualified Code(s): G47.33 - Obstructive sleep apnea (adult) (pediatric) (6) Diabetes Current Visit: Yes Status: Acute Code(s): E11.9 - Type 2 diabetes mellitus without complications Qualifiers: Diabetes mellitus type: type 2 Diabetes mellitus senior care insulin use: with senior care use Diabetes mellitus complication status: without complication Qualified Code(s): E11.9 - Type 2 diabetes mellitus without complications; Z79.4 - MCC (current) use of insulin (7) Hypothyroidism Current Visit: Yes Status: Acute Code(s): E03.9 - Hypothyroidism, unspecified Qualifiers: Hypothyroidism type: acquired Qualified Code(s): E03.9 - Hypothyroidism, unspecified (8) Acute hypoxemic respiratory failure Current Visit: Yes Status: Resolved Code(s): J96.01 - Acute respiratory failure with hypoxia (9) Acute hypercapnic respiratory failure Current Visit: Yes Status: Resolved Code(s): J96.02 - Acute respiratory failure with hypercapnia (10) Postoperative anemia Current Visit: Yes Status: Acute Code(s): D64.9 - Anemia, unspecified (11) Atrial fibrillation Current Visit: Yes Status: Acute Code(s): I48.91 - Unspecified atrial fibrillation Qualifiers: Atrial fibrillation type: paroxysmal Qualified Code(s): I48.0 - Paroxysmal atrial fibrillation (12) Hypokalemia Current Visit: Yes Status: Acute Code(s): E87.6 - Hypokalemia (13) Wound infection Current Visit: Yes Status: Acute Code(s): T14.8XXA - Other injury of unspecified body region, initial encounter; L08.9 - Local infection of the skin and subcutaneous tissue, unspecified
--- NOTE | 2019-01-31 11:00 | PT.PROG ---
Progress Note Progress Note: S. Patient stated that she is tired this morning, however agreed to go for a walk. O. Patient ambulated 150 feet around the nurses station and back to her room where she was left in her chair with alarm and call light. A. Patient tolerated ambulation well, She continues to require mod assist with toilet hygiene and would continue to benefit from skilled therapy to increase independence. P. Continue POC.
--- NOTE | 2019-01-31 11:36 | NEURO.PROG ---
Subjective Post Op Day: 6 Pain Management: PO Alfaro Catheter: No Flatus: Yes Diet: consistent carbohydrate Additional Details: On rounds with Dr Perez this morning Ana María was awake and alert. She sat up on the edge of the bed with minimal assist for Dr Perez to look at her incision. Her incision is intact with minimal serosanguinous drainage. There is a dusky area mid incision and some blisters away from the incision from the Prevena dressing. She has good bilateral dorsi/plantar flexion and hip flexion strength. She says the numbness is still resolved. She has ambulated well with physical therapy. Plan for discharge to [facility] in [place] per Dr Stevens. Objective : Data - Labs CBC and BMP: 01/31/19 04:05 01/31/19 04:05 - Vital Signs Vital Signs and I&O: Vital Signs - Last Taken Temperature 98.3 F 01/31/19 11:08 Pulse Rate 67 01/31/19 11:08 Respiratory Rate 17 01/31/19 11:08 Blood Pressure 136/61 01/31/19 11:08 Pulse Ox 93 01/31/19 11:08 Intake and Output (24hr x 4 totals) 01/29/19 01/30/19 01/31/19 02/01/19 05:59 05:59 05:59 05:59 Intake Total 3201 / 3201 3347 / 3347 1250 / 1250 250 / 250 Output Total 680 / 680 325 / 325 400 / 400 Balance 2521 / 2521 3022 / 3022 850 / 850 250 / 250
--- NOTE | 2019-01-31 12:00 | OT AM DAY ---
Diagnosis : Lumbar Fusion AM - Occupational Therapy S: The patient reports she is having pain in her back. Nursing staff is worried about the wound. The patient wanted to practice a shower today. O: We discussed how to use the sock aide which the patient was able to do with min assist. We then had the patient ambulate to the shower; she did fatigue and needed two rest breaks. While in the shower, OT had the patient participate as much as she could. It did take a lot of increased time to complete showering task. The patient did need assistance with rinsing off. She did practice using her bath sponge during the shower task to wash peroneal area as well as lower extremities. The patient did fatigue easily and needed rest breaks. She had difficulty with washing her hair and reaching behind her armpits and her back area, so she did use the sponge for that. After the shower we had the patient practice dressing tasks with adaptive equipment including trimming department blocker and sock aide for lower extremity dressing. The patient ambulated back to her room and completed ADLs while standing x1 minute. A: The patient does fatigue easily. She does need min assist for some of the showering tasks and requires increased time. P: Continue seeing patient BID during the week and one time per day over the weekend for upper extremity strengthening, ADLs, and overall functional mobility. EDISD
--- NOTE | 2019-01-31 15:41 | PT.PROG ---
Progress Note Progress Note: S. Patient stated that she is feeling pretty good this afternoon, She agreed to go to the therapy gym. O. Patient was wheeled to the therapy gym where she performed seated exercises in the form of; long arc quads, heel toe raises, ball squeezes, clam shells, resisted knee flexion all x 10 bilaterally, sit to stands x 10 then ambulated 150 feet back to her room where she was left in her chair with alarm and call light. A. Patient tolerated therapy well, she continues to require assistance with ADL's. She would continue to benefit from skilled therapy to increase strength, endurance and safety. P. Continue POC.
[2019-01-31] MEDS: ESCITALOPRAM 10 MG TABLET PO SCH (21:25)
[2019-01-31] MEDS: Pravastatin Tab 40 MG TAB PO SCH (21:26)
[2019-02-01] MEDS: DEXAMETHASONE RIGHT EYE SCH ×4 (03:00→19:38)
[2019-02-01] MEDS: ceFAZolin Inj 2gm (Premix) 2 GM/50 ML BAG IV SCH ×3 (03:00→19:38)
[2019-02-01] MEDS: TOBRAMYCIN RIGHT EYE SCH ×4 (03:00→19:38)
[2019-02-01] MEDS: HYDROcodone-APAP 5 MG -325 MG TABLET PO PRN ×5 (04:20→23:24)
[2019-02-01] MEDS: LEVOTHYROXINE 88 MCG TABLET PO SCH (06:10)
[2019-02-01] MEDS: Insulin Lispro Flexpen 300 UNIT/3 ML INSULN.PEN SUBCUT SCH ×3 (08:03→16:41)
[2019-02-01] MEDS: DILTIAZEM HCL CD 120 MG CAP PO SCH (08:40)
[2019-02-01] MEDS: DOCUSATE 100 MG CAPSULE PO SCH ×2 (08:40→20:43)
[2019-02-01] MEDS: PREGABALIN 100 MG CAPSULE PO SCH ×2 (08:40→20:44)
[2019-02-01] MEDS: DICYCLOMINE 20 MG TABLET PO SCH ×4 (08:41→20:44)
[2019-02-01] MEDS: Apixaban 5 MG TABLET PO SCH ×2 (08:41→20:44)
[2019-02-01] MEDS: DIVALPROEX SODIUM 250 MG TABLET PO SCH ×2 (08:42→20:43)
[2019-02-01] MEDS: Calcium/Vit D 600mg/400u Tab 1 TAB TABLET PO SCH (08:43)
[2019-02-01] MEDS: FAMOTIDINE 40 MG TABLET PO SCH (08:43)
[2019-02-01] MEDS: CYCLOBENZAPRINE 10 MG TABLET PO SCH ×3 (08:43→20:43)
[2019-02-01] MEDS: Potassium Chloride Tab 10 MEQ TAB PO SCH (08:45)
--- NOTE | 2019-02-01 11:47 | OT.PROG ---
Progress Note Progress Note: S: pt stated that she was feeling good and agreed to therapy. O: tx consisted of seated UE red RTB exercises of biceps, IROT/EROT x20 each, 1# UE exercises of biceps, wrist flexion and extension, EROT/IROT x20 each, STS x5, functional transfer from w/c to recliner with CGA for safety. A: pt tolerated session well. pt is able to susanne back brace independently and complete most ADLS with SBA. P: continue POC
--- NOTE | 2019-02-01 11:52 | PT.PROG ---
Progress Note Progress Note: S. Patient stated that she would go to the therapy gym this morning. O. Patient ambulated 175 feet to the therapy gym where she had heat to her upper back then performed seated long arc quads, heel toe raises, ball squeezes, clam shells, resisted knee flexion, and sit to stands all x 10. Patient was left with OT for further therapy. A. Patient tolerated therapy well this morning, she continues to make gains with strength and endurance, she would continue to benefit from skilled therapy to increase strength, endurance and safety at this time. P. continue POC.
--- NOTE | 2019-02-01 15:04 | NEURO.PROG ---
Subjective Post Op Day: 7 Pain Management: PO Alfaro Catheter: No Flatus: Yes Diet: consistent carbohydrate Additional Details: Ana María is awake, alert and in good spirits today. OT and PT have gone well with some limitations yet with ADL's and the recommendation from PT that she would still benefit from strength training. She is afebrile and VSS. She has good strength with dorsi and plantar flexion and hip flexion and denies paresthesias. Her transfer to [facility] in [place] is now scheduled for Wednesday. Objective : Data - Labs CBC and BMP: 01/31/19 04:05 01/31/19 04:05 - Vital Signs Vital Signs and I&O: Vital Signs - Last Taken Temperature 98.2 F 02/01/19 13:00 Pulse Rate 70 02/01/19 13:00 Respiratory Rate 02/01/19 13:00 Blood Pressure 125/63 02/01/19 13:00 Pulse Ox 92 02/01/19 13:00 Intake and Output (24hr x 4 totals) 01/30/19 01/31/19 02/01/19 02/02/19 05:59 05:59 05:59 05:59 Intake Total 3347 / 3347 1250 / 1250 2084 / 208 1340 / 1340 Output Total 325 / 325 400 / 400 Balance 3022 / 3022 850 / 850 2084 1340 / 1340
--- NOTE | 2019-02-01 15:40 | OT.PROG ---
Progress Note Progress Note: OT Daily Note 02/01/19 30 min S: pt was in her chair upon arrival. pt had just recieved a pain pill. O: pt was able to don her back brace with CGA. pt then was able to functionally ambulate with CGA only for safety >150 feet to therapy. pt then completed green theraband exercises B UE 20 reps in all directions A: pt is doing well, she is hoping to leave soon P:cont per poc
--- NOTE | 2019-02-01 15:50 | PT.PROG ---
Progress Note Progress Note: S. Patient agreed to go to the therapy gym this afternoon. O. Patient ambulated 175 feet to the therapy gym where she performed seated long arc quads, heel toe raises, ball squeezes, clam shells, resisted knee flexion all x 10, sit to stands x 5. Patient then ambulated 175 feet back to her room where she was left in the restroom and nursing was notified. A. Patient tolerated therapy well, she continues to make gains with strength, endurance and safety at this time. P. Continue POC.
[2019-02-01] MEDS: Pravastatin Tab 40 MG TAB PO SCH (20:43)
[2019-02-01] MEDS: ESCITALOPRAM 10 MG TABLET PO SCH (20:43)
--- NOTE | 2019-02-01 22:49 | PDOC(PROG) ---
Interval History: doing well Objective : Data - Labs CBC and BMP: 01/31/19 04:05 01/31/19 04:05 Objective : Exam - General General Appearance: No Acute Distress, Cooperative - Respiratory Respiratory Exam: Clear to Auscultation - Bilaterally, Breathing Non Labored, Normal To Percussion, Normal to Percussion and Palpation - Cardiovascular Cardiovascular Exam: RRR, No Murmur, No Clicks, No Gallops, No Rubs, PMI Non- Displaced Assessment and Plan - Patient Problems (1) Chronic neck and back pain Current Visit: Yes Status: Chronic Code(s): M54.2 - Cervicalgia; M54.9 - Dorsalgia, unspecified; G89.29 - Other chronic pain (2) Depression Current Visit: Yes Status: Chronic Code(s): F32.9 - Major depressive disorder, single episode, unspecified Qualifiers: Depression Type: other depression Qualified Code(s): F32.89 - Other specified depressive episodes (3) High cholesterol Current Visit: Yes Status: Chronic Code(s): E78.00 - Pure hypercholesterolemia, unspecified (4) GERD (gastroesophageal reflux disease) Current Visit: Yes Status: Chronic Code(s): K21.9 - Gastro-esophageal reflux disease without esophagitis (5) Sleep apnea Current Visit: Yes Status: Chronic Code(s): G47.30 - Sleep apnea, unspecified Qualifiers: Sleep apnea type: obstructive Qualified Code(s): G47.33 - Obstructive sleep apnea (adult) (pediatric) (6) Diabetes Current Visit: Yes Status: Acute Code(s): E11.9 - Type 2 diabetes mellitus without complications Qualifiers: Diabetes mellitus type: type 2 Diabetes mellitus joint terminal attack controller insulin use: with [facility] use Diabetes mellitus complication status: without complication Qualified Code(s): E11.9 - Type 2 diabetes mellitus without complications; Z79.4 - termite control servicer (current) use of insulin (7) Hypothyroidism Current Visit: Yes Status: Acute Code(s): E03.9 - Hypothyroidism, unspec ified Qualifiers: Hypothyroidism type: acquired Qualified Code(s): E03.9 - Hypothyroidism, unspecified (8) Acute hypoxemic respiratory failure Current Visit: Yes Status: Resolved Code(s): J96.01 - Acute respiratory failure with hypoxia (9) Acute hypercapnic respiratory failure Current Visit: Yes Status: Resolved Code(s): J96.02 - Acute respiratory failure with hypercapnia (10) Postoperative anemia Current Visit: Yes Status: Acute Code(s): D64.9 - Anemia, unspecified (11) Atrial fibrillation Current Visit: Yes Status: Acute Code(s): I48.91 - Unspecified atrial fibrillation Qualifiers: Atrial fibrillation type: paroxysmal Qualified Code(s): I48.0 - Paroxysmal atrial fibrillation (12) Hypokalemia Current Visit: Yes Status: Acute Code(s): E87.6 - Hypokalemia (13) Wound infection Current Visit: Yes Status: Acute Code(s): T14.8XXA - Other injury of unspecified body region, initial encounter; L08.9 - Local infection of the skin and subcutaneous tissue, unspecified - Assessment / Plan Additional Assessment/Plan Details: all medical problems are stable /wound is improving as per neuro cont keflex
[2019-02-02] MEDS: DEXAMETHASONE RIGHT EYE SCH ×3 (03:05→13:49)
[2019-02-02] MEDS: TOBRAMYCIN RIGHT EYE SCH ×3 (03:05→13:49)
[2019-02-02] MEDS: ceFAZolin Inj 2gm (Premix) 2 GM/50 ML BAG IV SCH ×2 (03:05→11:35)
[2019-02-02] MEDS: HYDROcodone-APAP 5 MG -325 MG TABLET PO PRN ×4 (04:00→18:21)
[2019-02-02] MEDS: LEVOTHYROXINE 88 MCG TABLET PO SCH (05:44)
--- NOTE | 2019-02-02 07:12 | NEURO.PROG ---
Subjective Post Op Day: 8 Pain Management: PO Alfaro Catheter: No Diet: consistent carbohydrate Ambulating: Yes Additional Details: On rounds with Dr Perez this morning Ana María is awake and alert and looking forward to getting back to [place]. She is scheduled to go to [facility] in [place] tomorrow. She has done well with PT and OT, though continues to need some help with ADLs, specifically with toileting. She is afebrile and her VSS. Her incision is intact and improving with decreased area of dusky coloration. She has good dorsi/plantar flexion and hip flexion bilaterally. Plan Continue to mobilize and strength training with PT/OT in preparation for discharge to [facility] in [place] tomorrow per hospitalist Objective : Data - Labs CBC and BMP: 01/31/19 04:05 01/31/19 04:05 - Vital Signs Vital Signs and I&O: Vital Signs - Last Taken Temperature 97.8 F 02/02/19 06:48 Pulse Rate 64 02/02/19 06:48 Respiratory Rate 16 02/02/19 06:48 Blood Pressure 119/45 02/02/19 06:48 Pulse Ox 93 02/02/19 06:48 Intake and Output (24hr x 4 totals) 01/31/19 02/01/19 02/02/19 02/03/19 05:59 05:59 05:59 05:59 Intake Total 1250 / 1250 2084 1580 / 1580 Output Total 400 / 400 Balance 850 / 850 2084 158 / 1580
[2019-02-02] MEDS: Insulin Lispro Flexpen 300 UNIT/3 ML INSULN.PEN SUBCUT SCH ×3 (08:44→16:46)
[2019-02-02] MEDS: Potassium Chloride Tab 10 MEQ TAB PO SCH (08:46)
[2019-02-02] MEDS: DILTIAZEM HCL CD 120 MG CAP PO SCH (08:46)
[2019-02-02] MEDS: Calcium/Vit D 600mg/400u Tab 1 TAB TABLET PO SCH (08:47)
[2019-02-02] MEDS: DIVALPROEX SODIUM 250 MG TABLET PO SCH ×2 (08:47→21:04)
[2019-02-02] MEDS: DOCUSATE 100 MG CAPSULE PO SCH ×2 (08:47→21:04)
[2019-02-02] MEDS: Apixaban 5 MG TABLET PO SCH ×2 (08:48→21:05)
[2019-02-02] MEDS: DICYCLOMINE 20 MG TABLET PO SCH ×4 (08:49→22:00)
[2019-02-02] MEDS: FAMOTIDINE 40 MG TABLET PO SCH (08:49)
[2019-02-02] MEDS: CYCLOBENZAPRINE 10 MG TABLET PO SCH ×3 (08:50→21:05)
[2019-02-02] MEDS: PREGABALIN 100 MG CAPSULE PO SCH ×2 (09:14→21:05)
[2019-02-02] MEDS ORDERED: LIDOCAINE HCL 2 % 10 ML JELLY URO-JECT TOPICAL PRN (11:16)
--- NOTE | 2019-02-02 11:17 | PDOC(PROG) ---
Interval History: Patient is doing well she states that Dr. Perez saw her and told her that her back is still red but is not getting worse. She also states that she her legs are swollen legs are always swollen and if we can do something to have some to get some fluid off. No chest pain nausea or vomiting Objective : Data - Labs CBC and BMP: 01/31/19 04:05 01/31/19 04:05 Objective : Exam - General General Appearance: No Acute Distress, Cooperative - Respiratory Respiratory Exam: Clear to Auscultation - Bilaterally, Breathing Non Labored, Normal To Percussion, Normal to Percussion and Palpation - Cardiovascular Cardiovascular Exam: RRR, No Murmur, No Clicks, No Gallops, No Rubs, PMI Non- Displaced - Extremities Extremities Exam: +2 Edema - Neurological Neurological Exam: Alert, Oriented x 3 Assessment and Plan - Patient Problems (1) Depression Current Visit: Yes Status: Chronic Comment: Stable Code(s): F32.9 - Major depressive disorder, single episode, unspecified Qualifiers: Depression Type: other depression Qualified Code(s): F32.89 - Other specified depressive episodes (2) High cholesterol Current Visit: Yes Status: Chronic Comment: Continue statin Code(s): E78.00 - Pure hypercholesterolemia, unspecified (3) GERD (gastroesophageal reflux disease) Current Visit: Yes Status: Chronic Comment: Continue PPI Code(s): K21.9 - Gastro-esophageal reflux disease without esophagitis (4) Sleep apnea Current Visit: Yes Status: Chronic Code(s): G47.30 - Sleep apnea, unspecified Qualifiers: Sleep apnea type: obstructive Qualified Code(s): G47.33 - Obstructive sleep apnea (adult) (pediatric) (5) Diabetes Current Visit: Yes Status: Acute Comment: Continue current meds Code(s): E11.9 - Type 2 diabetes mellitus without complications Qualifiers: Diabetes mellitus type: type 2 Diabetes mellitus taper/finisher insulin use: with taper/finisher use Diabetes mellitus complication status: without complication Qualified Code(s): E11.9 - Type 2 diabetes mellitus without complications; 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 (6) Hypothyroidism Current Visit: Yes Status: Acute Comment: Continue replacement Code(s): E03.9 - Hypothyroidism, unspecified Qualifiers: Hypothyroidism type: acquired Qualified Code(s): E03.9 - Hypothyroidism, unspecified (7) Acute hypercapnic respiratory failure Current Visit: Yes Status: Resolved Code(s): J96.02 - Acute respiratory failure with hypercapnia (8) Postoperative anemia Current Visit: Yes Status: Acute Code(s): D64.9 - Anemia, unspecified (9) Atrial fibrillation Current Visit: Yes Status: Acute Comment: Stable Code(s): I48.91 - Unspecified atrial fibrillation Qualifiers: Atrial fibrillation type: paroxysmal Qualified Code(s): I48.0 - Paroxysmal atrial fibrillation (10) Hypokalemia Current Visit: Yes Status: Acute Comment: Replaced Code(s): E87.6 - Hypokalemia (11) Wound infection Current Visit: Yes Status: Acute Comment: Continue for Keflex Dr. Perez and neurosurgical team are following this and are taking care of it the plan is for her to go to [place] with wound care and rehabilitation Code(s): T14.8XXA - Other injury of unspecified body region, initial encounter; L08.9 - Local infection of the skin and subcutaneous tissue, unspecified (12) Leg edema Current Visit: Yes Status: Acute Comment: Bilaterally I told the patient that I could give her some Lasix to help to get some fluid off ultimately she should follow-up with her primary care physician to maybe get her heart worked up and see a agriculture internship for her sleep apnea and possibly get on CPAP Code(s): R60.0 - Localized edema
[2019-02-02] MEDS: FUROSEMIDE 10 MG/1 ML - 2 ML VIAL IVP SCH ×2 (11:54→13:49)
[2019-02-02] MEDS: CEPHALEXIN 500 MG CAPSULE PO SCH ×3 (13:00→21:04)
--- NOTE | 2019-02-02 16:21 | PT.PROG ---
Progress Note Progress Note: S. Patient stated that she is feeling good this morning, and agreed to go to the therapy gym this morning O. Patient ambulated 175 feet to the therapy gym where she performed exercises in the form of; seated long arc quads, marches, ball squeezes, clam shells, resisted knee flexion, heel toe raises, all x 15 bilaterally with red thera bands, Patient then performed sit to stands x 10 Patient used the nu-step x 7 minutes then ambulated 175 feet to her room and was left with call light and alarm. A. Patient tolerated therapy well, she was able to perform all exercises with no increase in pain or problems. Patient continues to require min assist with transfers and ambulation, she would continue to benefit from skilled therapy to increase strength, endurance, and safety at this time. P. Continue POC.
--- NOTE | 2019-02-02 16:24 | OT.PROG ---
Progress Note Progress Note: S: pt stated that she needed to use the bathroom. O: tx consisted of STS x1, functional ambulation x10' with FWW and CGA for safety, toilet transfer with SBA for safety, toileting tasks independently, education on use of toileting tongs and techniques to complete toileting hygiene. A: pt tolerated session well. pt was able to independently clean self after toileting with toilet tongs and education on various techniques. P: continue POC
--- NOTE | 2019-02-02 16:27 | OT.PROG ---
Progress Note Progress Note: S: pt stated that she was ready fro therapy. O: tx consisted of AROM in all planes to 90 degrees, UE red RTB exercises in all planes to tolerance x15 each. A: pt tolerated session well. pt overall has improved in functional ability and independence in ADLs. P: continue POC
--- NOTE | 2019-02-02 16:27 | PT.PROG ---
Progress Note Progress Note: S. patient stated she doesn't want to go to the therapy gym this afternoon since she had her catheter replaced. O. Patient ambulated 300 feet around the nurses station then performed seated long arc quads, heel toe raises, resisted knee flexion, and pillow squeezes all x 10 bilaterally. Patient was left in her chair with nursing staff. A. Patient tolerated therapy well, she continues to require min assist with sit to stand transfers and ambulation, she would continue to benefit from skilled therapy to increase strength, endurance and safety at this time. P. continue POC.
[2019-02-02] MEDS: ESCITALOPRAM 10 MG TABLET PO SCH (21:04)
[2019-02-02] MEDS: Pravastatin Tab 40 MG TAB PO SCH (21:05)
[2019-02-02] MEDS: POTASSIUM CHLORIDE 20 MEQ TAB PO SCH (23:39)
[2019-02-03] MEDS: HYDROcodone-APAP 5 MG -325 MG TABLET PO PRN ×3 (04:53→12:24)
[2019-02-03] MEDS: LEVOTHYROXINE 88 MCG TABLET PO SCH (04:53)
[2019-02-03 05:39] LABS: BLOOD UREA NITROGEN 15 mg/dL (7-22); SERUM ALBUMIN 3.1 g/dL (3.5-4.8)
[2019-02-03 06:43] VITALS: RESP 12; TEMP 97.8
[2019-02-03] MEDS: POTASSIUM CHLORIDE 20 MEQ TAB PO SCH (07:26)
[2019-02-03] MEDS: FUROSEMIDE 10 MG/1 ML - 2 ML VIAL IVP SCH (07:26)
[2019-02-03] MEDS: Insulin Lispro Flexpen 300 UNIT/3 ML INSULN.PEN SUBCUT SCH ×2 (07:27→13:36)
--- NOTE | 2019-02-03 07:28 | NEURO.PROG ---
Subjective Post Op Day: 9 Pain Management: PO Alfaro Catheter: No Flatus: Yes Diet: Consistent carbohydrate Ambulating: Yes Additional Details: Awake and alert. Sitting comfortably in chair. Back still sore as expected but only on low dose hydrocodone for pain. Legs still good. Incision looking better daily. Have seen patient every day this week including Wednesday after surgery, doing well. Ready for discharge to [facility] today. She will follow-up in my [place] [facility] next Wednesday. Objective : Data - Labs CBC and BMP: 01/31/19 04:05 02/03/19 04:40 - Vital Signs Vital Signs and I&O: Vital Signs - Last Taken Temperature 97.8 F 02/03/19 06:39 Pulse Rate 66 02/03/19 06:39 Respiratory Rate 12 02/03/19 06:39 Blood Pressure 131/63 02/03/19 06:39 Pulse Ox 96 02/03/19 06:39 Intake and Output (24hr x 4 totals) 02/01/19 02/02/19 02/03/19 02/04/19 05:59 05:59 05:59 05:59 Intake Total 2084 1580 / 1580 2190 / 2190 Output Total 7020 / 7020 Balance 2084 1580 / 1580 -4830 / -4830
[2019-02-03] MEDS: Apixaban 5 MG TABLET PO SCH (08:47)
[2019-02-03] MEDS: PREGABALIN 100 MG CAPSULE PO SCH (08:47)
[2019-02-03] MEDS: FAMOTIDINE 40 MG TABLET PO SCH (08:47)
[2019-02-03] MEDS: Calcium/Vit D 600mg/400u Tab 1 TAB TABLET PO SCH (08:47)
[2019-02-03] MEDS: CEPHALEXIN 500 MG CAPSULE PO SCH ×2 (08:48→12:24)
[2019-02-03] MEDS: DIVALPROEX SODIUM 250 MG TABLET PO SCH (08:48)
[2019-02-03] MEDS: DOCUSATE 100 MG CAPSULE PO SCH (08:48)
[2019-02-03] MEDS: CYCLOBENZAPRINE 10 MG TABLET PO SCH (08:48)
[2019-02-03] MEDS: DILTIAZEM HCL CD 120 MG CAP PO SCH (08:48)
[2019-02-03] MEDS: Potassium Chloride Tab 10 MEQ TAB PO SCH (08:53)
--- NOTE | 2019-02-03 10:19 | DCSUMMARY ---
Hospitalization Summary Hospital Course: Final Discharge Diagnosis: Current Visit Problems Problem Status Onset Code Diabetes Acute E11.9 Hypothyroidism Acute E03.9 Acute hypoxemic respiratory failure Resolved J96.01 Acute hypercapnic respiratory failure Resolved J96.02 Postoperative anemia Acute D64.9 Atrial fibrillation Acute I48.91 Hypokalemia Acute E87.6 Wound infection Acute T14.8XXA, L08.9 Leg edema Acute R60.0 Sleep apnea Chronic G47.30 GERD (gastroesophageal reflux disease) Chronic K21.9 High cholesterol Chronic E78.00 Depression Chronic F32.9 Chronic neck and back pain Chronic M54.2, M54.9, G89.29 Diagnostic Data, Laboratory Data, and Procedures of Signifigance: History and Physical pertinent to Admission: Past Medical History Medical History: 1. Morbid obesity. 2. History of hypothyroidism. 3. History of diabetes, she is only on sliding scale NovoLog according to her. 4. History of obstructive sleep apnea on CPAP. 5. History of depression. 6. History of hypercholesterolemia. 7. History of hypertension she said this was before her gastric bypass and now she is not on any medication. 8. History of cardiac catheterization in July 2014 there was no evidence of coronary artery disease. 9. History of chronic leg edema on furosemide. 10. Chronic back pain. 11. History of GERD. 12. History of grade 2 diastolic dysfunction. 13. History of ascending aorta dilatation 4.1 on echocardiogram done in 2013. 14. History of chronic migraines Surgical History: 1. History of gastric bypass. 2. History of bilateral knee replacements. 3. History of umbilical hernia repair Family History: Reviewed an Not Pertinent Past Social History: Does not smoke, does not drink, no drugs is in [place] with her . Tobacco Use: Never Smoker In the Past 12 Months, Have Used or Abuse Any of the Following Substance: None Course of Hospitalization: This very nice 58-year-old female with past medical history significant for diabetes, hypercholesterolemia, depression, anxiety, hypothyroidism, chronic migraines, morbid obesity, sleep apnea on CPAP, and multilevel lumbar degenerative disc disease and chronic leg swelling she was admitted by the neurosurgical team and had an elective transforaminal lumbar interbody and posterior lateral instrumented fusion which was done by Dr. Perez hospitalist service was consulted for management of medical issues. She had the PT and OT while in the hospital. She also had some redness around her wound this was followed closely by Dr. Perez patient will be discharged to rehabilitation and wound care in [facility]. Patient was treated the with the Ancef IV in regards to the redness around the wound Dr. Perez agrees also she will continue 5 more days of Keflex. Prescription was included in the packet and she has an allergy to penicillin but has been tolerating the Ancef and Keflex the without any side effects. She will be followed by the neurosurgical team in [place] at their office. Patient also developed A. fib converted spontaneously and was startedon eliquis for anticoagulation and stroke prophylaxis. I have included prescriptions for Keflex and eliquis On the date of discharge, the patient was examined: Gen.: No acute distress, alert, nontoxic Heart: Regular rate and rhythm, no murmurs, clicks, gallops, or rubs Lungs: Clear to auscultation bilaterally, breathing is nonlabored Abdomen/GI: Normal tones on auscultation, soft, nontender, nondistended Musculoskeletal/extremities: No clubbing, cyanosis, or edema Vitals reviewed and are listed below Vital Signs (24 hrs) 02/02/19 12:21 02/02/19 13:18 02/02/19 16:26 Temperature 97.3 F 98.1 F Pulse Rate [Apical] 74 Pulse Rate [Pulse Oximeter] 62 62 Respiratory Rate 16 12 Blood Pressure [Left Arm] Blood Pressure [Right Arm] 142/64 125/62 Blood Pressure [Right Radial Artery] 125/45 Pulse Ox 92 95 02/02/19 20:10 02/03/19 00:28 02/03/19 04:39 Temperature 98.2 F 98.3 F 98.0 F Pulse Rate [Apical] Pulse Rate [Pulse Oximeter] 81 69 68 Respiratory Rate 20 16 16 Blood Pressure [Left Arm] Blood Pressure [Right Arm] Blood Pressure [Right Radial Artery] 112/53 112/60 130/70 Pulse Ox 93 91 91 02/03/19 06:39 Temperature 97.8 F Pulse Rate [Apical] Pulse Rate [Pulse Oximeter] 66 Respiratory Rate 12 Blood Pressure [Left Arm] 131/63 Blood Pressure [Right Arm] Blood Pressure [Right Radial Artery] Pulse Ox 96 Assessment and Plan: 1. As per discharge assessments above 2. Disposition: [facility] rehabilitation in [place] 3. Condition on discharge, stable and improved. 4. Diet: regular diet 5. Activities: resume normal activities 6. Follow-Up: 1. PCP 2. Dr. Perez on Wednesday 7. Medications at the Time of Discharge: Home Medications Medication Instructions Recorded Confirmed Lactobacillus acidophilus 460 mg 460 mg PO QDAY 08/30/18 01/24/19 (20 billion cell) capsule albuterol sulfate HFA 90 2 puff INH QID 08/30/18 01/24/19 mcg/actuation aerosol inhaler bupropion HCl XL 150 mg 24 hr 150 mg PO BID 08/30/18 01/24/19 tablet, extended release cyclobenzaprine 10 mg tablet 10 mg PO TID 08/30/18 01/24/19 docusate sodium 100 mg capsule 100 mg PO BID 08/30/18 01/24/19 furosemide 40 mg tablet 40 mg PO QDAY 08/30/18 01/24/19 insulin aspart (U-100) 100 unit/mL 35 unit SUBCUT QACDINNER 08/30/18 01/26/19 (3 mL) subcutaneous pen levothyroxine 88 mcg tablet 88 mcg PO QDAY 08/30/18 01/24/19 omega 7-iqk-jhc-fish oil 1,000 mg 1 cap PO DAILY cap 08/30/18 01/24/19 (120 mg-180 mg) capsule omeprazole 20 mg capsule,delayed 40 mg PO BID 08/30/18 01/26/19 release potassium chloride ER 10 mEq 10 meq PO QDAY 08/30/18 01/24/19 capsule,extended release pravastatin 40 mg tablet 40 mg PO QDAY 08/30/18 01/24/19 pregabalin 200 mg capsule 200 mg PO DAILY 08/30/18 01/26/19 tolterodine ER 4 mg 4 mg PO QDAY 08/30/18 01/24/19 capsule,extended release 24 hr zolpidem 10 mg tablet 10 mg PO QHS 08/30/18 01/24/19 divalproex 500 mg tablet,delayed 500 mg PO BID #60 tab 12/29/18 01/24/19 release calcium carbonate 600 mg(1,500 2 tab PO QDAY tab 01/11/19 01/24/19 mg)-vitamin D3 800 unit chewable tablet cholecalciferol (vitamin D3) 50,000 unit PO QWEEK 01/11/19 01/24/19 50,000 unit capsule dicyclomine 20 mg tablet 20 mg PO BID 01/11/19 01/26/19 imiquimod 5 % topical cream packet 1 applic TOPICAL QHS ea 01/11/19 01/24/19 gkidhwve-dkixrbnw-leih 45 mg-folic 1 cap PO QDAY cap 01/11/19 01/24/19 acid 800 mcg-vit K 120 mcg capsule ranitidine 300 mg tablet 300 mg PO QHS tab 01/11/19 01/24/19 zinc 50 mg tablet 50 mg PO QDAY 01/11/19 01/24/19 Escitalopram Oxalate 20 mg PO DAILY 01/26/19 01/26/19 Famotidine 20 mg PO DAILY 01/26/19 01/26/19 Galcanezumab-Gnlm [Emgality 120 mg IM Q30D 01/26/19 01/26/19 Syringe] Hydrocortisone Cream 2.5% [Hytone 2.5 applic TOPICAL BID 01/26/19 01/26/19 Cream 2.5%] Meloxicam 7.5 mg PO DAILY 01/26/19 01/26/19 Ondansetron Odt [Zofran ODT] 4 mg PO Q4H 01/26/19 01/26/19 Triamcinolone Ointment 0.1% 0.1 applic TOPICAL BID 01/26/19 01/26/19 [Kenalog Ointment 0.1%] Apixaban [Eliquis] 5 mg PO BID #60 tab 02/03/19 Cephalexin [Keflex] 500 mg PO QID #20 cap 02/03/19 Cyclobenzaprine HCl [Flexeril] 5 mg PO TID #90 tab 02/03/19 HYDROcodone/APAP 5/325 Tab [[place] 1 - 2 tab PO Q4H PRN #60 tab 02/03/19 5/325 Tab] 8. Time, care, counseling and coordination of care for this discharge is greater than 30 minutes. Exam - Vitals Vital Signs: Vital Signs Temperature 97.8 F Temperature Source Oral Pulse Rate [Telemetry] 78 Pulse Rate [Apical] 74 Pulse Rate [Pulse Oximeter] 66 Pulse Rate [Left Hand] 60 Pulse Rate 79 Respiratory Rate 12 Blood Pressure [Right Radial 130/70 Artery] Blood Pressure [Left Radial 121/79 Artery] Blood Pressure [Left Arm] 131/63 Blood Pressure [Right Arm] 125/62 Blood Pressure 141/63 Pulse Ox [Left Hand] 95 Pulse Ox 96 Oxygen Flow Rate [Left Hand] 2 Oxygen Flow Rate 2.5 Oxygen Delivery Method [Left Nasal Cannula Hand] Oxygen Delivery Method Room Air Height 5 ft 5 in Weight 304 lb 12.8 oz Patient Problems - Patient Problem List (1) Depression Current Visit: Yes Status: Chronic Code(s): F32.9 - Major depressive disorder, single episode, unspecified Qualifiers: Depression Type: other depression Qualified Code(s): F32.89 - Other specified depressive episodes Category: Medical (2) High cholesterol Current Visit: Yes Status: Chronic Code(s): E78.00 - Pure hypercholesterolemia, unspecified Category: Medical (3) GERD (gastroesophageal reflux disease) Current Visit: Yes Status: Chronic Code(s): K21.9 - Gastro-esophageal reflux disease without esophagitis Category: Medical (4) Sleep apnea Current Visit: Yes Status: Chronic Code(s): G47.30 - Sleep apnea, unspecified Qualifiers: Sleep apnea type: obstructive Qualified Code(s): G47.33 - Obstructive sleep apnea (adult) (pediatric) Category: Medical (5) Diabetes Current Visit: Yes Status: Acute Code(s): E11.9 - Type 2 diabetes mellitus without complications Qualifiers: Diabetes mellitus type: type 2 Diabetes mellitus camera engineer insulin use: with camera engineer use Diabetes mellitus complication status: without complication Qualified Code(s): E11.9 - Type 2 diabetes mellitus without complications; 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 Category: Medical (6) Hypothyroidism Current Visit: Yes Status: Acute Code(s): E03.9 - Hypothyroidism, unspecified Qualifiers: Hypothyroidism type: acquired Qualified Code(s): E03.9 - Hypothyroidism, unspecified Category: Medical (7) Acute hypercapnic respiratory failure Current Visit: Yes Status: Resolved Code(s): J96.02 - Acute respiratory failure with hypercapnia Category: Medical (8) Postoperative anemia Current Visit: Yes Status: Acute Code(s): D64.9 - Anemia, unspecified Category: Medical (9) Atrial fibrillation Current Visit: Yes Status: Acute Code(s): I48.91 - Unspecified atrial fibrillation Qualifiers: Atrial fibrillation type: paroxysmal Qualified Code(s): I48.0 - Paroxysmal atrial fibrillation Category: Medical (10) Hypokalemia Current Visit: Yes Status: Acute Code(s): E87.6 - Hypokalemia Category: Medical (11) Wound infection Current Visit: Yes Status: Acute Code(s): T14.8XXA - Other injury of unspecified body region, initial encounter; L08.9 - Local infection of the skin and subcutaneous tissue, unspecified Category: Medical (12) Leg edema Current Visit: Yes Status: Acute Code(s): R60.0 - Localized edema Category: Medical
[2019-02-03 11:17] VITALS: BP 133/72; O2SAT 94
--- NOTE | 2019-02-03 11:34 | PT PM DAY ---
PM - Physical Therapy O: The patient was issued a shoulder sling and instructed in its proper use and care. P: No further therapy is indicated at this time. MTDD
--- NOTE | 2019-02-03 11:56 | OT PM DAY ---
Diagnosis : Lumbar Fusion PM - Occupational Therapy S: The patient reports her back pain is slightly better. She is still struggling with moving around. O: Today we worked on having the patient go from the chair to the bathroom with contact guard assist. The patient was having difficulty with perineal hygiene. She was instructed in the use of her toilet tongs and how to place the toilet paper and wipes on better in order to improve her hygiene. The patient did improve with this; however, she had to do it in a standing position. The patient then went to the sink to complete hygiene activities. Downstairs in therapy we worked on upper extremity active range of motion for shoulder flexion, abduction, biceps, and pronation/supination, followed by some light hand strengthening with putty and power web. A: The patient participated well. She still needs to work on toilet hygiene as the therapist did have to help her and she was not able to clean herself completely. P: Continue seeing patient BID during the week and one time per day over the weekend for upper extremity strengthening, ADLs, and overall functional mobility. MINESH
== END 2019-02-03 13:24 | disposition home or self-care (01) | DRG 453 ==
LOC: MED/SURG 05:48 → ICU 01-28 11:12 → MED/SURG 01-29 11:01
PROVIDERS: ADMIT Neurological Surgery; ATTEND Neurological Surgery